=== PATIENT | female | born 1945 | race Caucasian/White ===

== ENCOUNTER 2017-12-27 03:10 | Emergency (ER) | payer MEDICARE, BC ==
[2017-12-27 03:17] VITALS: BP 185/70
[2017-12-27] MEDS ORDERED: Sodium Chloride 0.9% 1,000 ML IV ONE (03:40)
[2017-12-27] MEDS ORDERED: Ondansetron 4 MG/2 ML SDV IV ONE (03:41)
[2017-12-27 03:47] LABS: CHLORIDE,CL 94 mmol/L (101-111); SODIUM,NA 131 mmol/L (135-145)
[2017-12-27] MEDS ORDERED: Famotidine 20 MG/2 ML SDV IVPUSH ONE (03:47)
--- NOTE | 2017-12-27 04:11 | EDM.PDOC ---
ED HPI GENERAL MEDICAL PROBLEM - General Chief Complaint: Genitourinary Problem Stated Complaint: CANT PEE AND THROWING UP [id number] Time Seen by Provider: 12/27/17 04:06 Source of Information: Reports: Patient History Limitations: Reports: No Limitations - History of Present Illness INITIAL COMMENTS - FREE TEXT/NARRATIVE: ED with complaint of nausea vomiting and unable to void.Last void afternoon, feels pressure. Notes lower abdominal cramping starting 730 tonight after eating meatballs prepared by someone else. Hx celiac disease. No fever or chills. Normal BM's, no diarrhea. hx frequent UTI's. - Related Data Allergies Allergy/AdvReac Type Severity Reaction Status Date / Time latex Allergy Hives Verified 12/27/17 03:43 lisinopril Allergy Change Verified 12/27/17 03:43 Mental Status tetanus toxoid, adsorbed Allergy Nausea and Verified 12/27/17 03:43 Vomiting Home Meds: Home Meds Alendronate [Fosamax] 70 mg PO .WEEKLY 07/09/14 [History] Latanoprost [Xalatan 0.005% Ophth Soln] 1 drop EYEBOTH BEDTIME 07/09/14 [History ] Levothyroxine 112 mcg PO DAILY 07/09/14 [History] Nitroglycerin [Nitrostat] 0.4 mg SL ASDIRECTED PRN 07/09/14 [History] Warfarin Sodium [Jantoven] 5 mg PO .VICK.MO.WE.TH.SA 07/12/14 [History] Warfarin [Coumadin] 3 mg PO .TU.Sat09/07/14 [History] Acetaminophen 500 mg PO Q6H PRN 09/06/15 [History] Cetirizine [ZyrTEC] 10 mg PO DAILY PRN 09/06/15 [History] Multivitamin [Multivitamins] 2 tab PO DAILY 09/06/15 [History] Pantoprazole [ProTONIX] 40 mg PO DAILY 09/06/15 [History] Ubidecarenone [Coenzyme Q10] 100 mg PO DAILY 09/06/15 [History] Aspirin 81 mg PO DAILY 07/04/16 [History] Loratadine 10 mg PO DAILY PRN 07/04/16 [History] Losartan [Cozaar] 50 mg PO DAILY #30 tablet 07/05/16 [Rx] Pravastatin [Pravachol] 40 mg PO BEDTIME #30 tablet 07/05/16 [Rx] Metoprolol Succinate [Toprol XL 50mg] 1 tab PO DAILY 12/27/17 [History] Phytonadione [Vitamin K] 1 tab PO DAILY 12/27/17 [History] Propylene Glycol/PEG 400/Pf [Systane 0.3-0.4% Eye Drops] 1 drop EYEBOTH ASDIRECTED PRN 12/27/17 [History] Past Medical History HEENT History: Reports: Impaired Vision Cardiovascular History: Reports: Afib, Angina, Bypass, CAD, High Cholesterol, Hypertension Gastrointestinal History: Reports: Celiac Disease Genitourinary History: Reports: Urinary Incontinence Musculoskeletal History: Reports: Arthritis Neurological History: Reports: TIA Other Neuro History: this admission Endocrine/Metabolic History: Reports: Hypothyroidism Hematologic History: Reports: Anticoagulation Therapy Immunologic History: Reports: Other (See Below) Other Immunologic History: celiac disease - Infectious Disease History Infectious Disease History: Reports: Chicken Pox, Measles, Mumps, Rubella, Shingles - Past Surgical History HEENT Surgical History: Reports: Cataract Surgery Cardiovascular Surgical History: Reports: Coronary Artery Bypass, Other (See Below) GI Surgical History: Reports: Cholecystectomy Female Surgical History: Reports: Hysterectomy Other Female Surgeries/Procedures: repair of genitourinary, bladdersling Social & Family History - Family History Family Medical History: Noncontributory - Tobacco Use Smoking Status *Q: Unknown Ever Smoked Second Hand Smoke Exposure: No - Caffeine Use Caffeine Use: Reports: Coffee - Alcohol Use Days Per Week of Alcohol Use: 0 - Recreational Drug Use Recreational Drug Use: No - Living Situation & Occupation Living situation: Reports: , with Spouse Occupation: Retired ED ROS GENERAL - Review of Systems Review Of Systems: See Below Constitutional: Denies: Fever, Chills HEENT: Reports: No Symptoms Respiratory: Reports: No Symptoms Cardiovascular: Reports: No Symptoms GI/Abdominal: Reports: Abdominal Pain (started with lower abdominal cramping now upper gastric burning), Nausea, Vomiting. Denies: Diarrhea, Hematemesis : Reports: Urinary Retention Musculoskeletal: Reports: No Symptoms Skin: Reports: No Symptoms Neurological: Reports: No Symptoms ED EXAM, GI/ABD - Physical Exam Exam: See Below Exam Limited By: No Limitations General Appearance: Alert, Anxious, Mild Distress Eyes: Bilateral: EOMI Ears: Normal External Exam, Normal TMs Nose: Normal Inspection Throat/Mouth: Normal Inspection Head: Atraumatic, Normocephalic Neck: Normal Inspection Respiratory/Chest: No Respiratory Distress, Lungs Clear, Normal Breath Sounds Cardiovascular: Normal Peripheral Pulses GI/Abdominal Exam: Normal Bowel Sounds, Soft, Tender (epigastric). No: Distended, Guarding Extremities: Normal Inspection Neurological: Alert, Oriented, Normal Cognition Psychiatric: Anxious Skin Exam: Warm, Dry, Intact, Normal Color Course - Vital Signs Last Recorded V/S: Last Vital Signs Temp 97.2 F 12/27/17 03:16 Pulse 82 12/27/17 03:16 Resp 19 12/27/17 03:16 BP 185/70 H 12/27/17 03:16 Pulse Ox 97 12/27/17 03:16 - Orders/Labs/Meds Orders: Active Orders 24 hr Category Date Time Status EKG 12 Lead [EKG Documentation Completion] [RC] URGENT Care 12/27/17 04:18 Active Labs: Laboratory Tests 12/27/17 12/27/17 12/27/17 Range/Units 02:20 02:20 02:20 WBC 11.3 H (5.0-10.0) 10^3/uL RBC 4.72 (4.2-5.4) 10^6/uL Hgb 14.2 (12.0-16.0) g/dL Hct 42.7 (37.0-47.0) % MCV 90.5 (80-100) fL MCH 30.1 (27.0-34.0) pg MCHC 33.3 (33.0-35.0) g/dL Plt Count 283 (150-450) 10^3/uL Neut % (Auto) 84.0 H (42.2-75.2) % Lymph % (Auto) 11.1 L (20.5-50.1) % Tillman % (Auto) 3.9 (2-8) % Eos % (Auto) 0.9 L (1.0-3.0) % Baso % (Auto) 0.1 (0.0-1.0) % PT 20.6 H D (9.0-12.0) SEC INR 2.0 H (0.9-1.2) Sodium 131 L (135-145) mmol/L Potassium 4.2 (3.6-5.0) mmol/L Chloride 94 L (101-111) mmol/L Carbon Dioxide 30.0 (21.0-31.0) mmol/L Anion Gap 11.2 BUN 14 (7-18) mg/dL Creatinine 0.7 (0.6-1.3) mg/dL Est Cr Clr Drug Dosing 58.30 mL/min Estimated GFR (MDRD) > 60 BUN/Creatinine Ratio 20.00 Glucose 157 H (74-105) mg/dL Calcium 9.4 (8.4-10.2) mg/dl Total Bilirubin 0.4 (0.2-1.0) mg/dL AST 27 (10-42) IU/L ALT 22 (10-60) IU/L Alkaline Phosphatase 83 (42-121) IU/L Troponin I (0.00-0.02) ng/ml Total Protein 7.4 (6.7-8.2) g/dl Albumin 4.3 (3.2-5.5) g/dl Globulin 3.1 Albumin/Globulin Ratio 1.39 Amylase (28-100) U/L Lipase (22-51) U/L Urine Color (YELLOW) Urine Appearance (CLEAR) Urine pH (5.0-9.0) Ur Specific [place] (1.005-1.030) Urine Protein (NEGATIVE) Urine Glucose (UA) (NEGATIVE) Urine Ketones (NEGATIVE) Urine Occult Blood (NEGATIVE) Urine Nitrite (NEGATIVE) Urine Bilirubin (NEGATIVE) Urine Urobilinogen (0.2-1.0) mg/dL Ur Leukocyte Esterase (NEGATIVE) Urine RBC /HPF Urine WBC (0-5/HPF) /HPF Ur Epithelial Cells /HPF Urine Bacteria (0-FEW/HPF) /HPF 12/27/17 12/27/17 Range/Units 02:20 03:30 WBC (5.0-10.0) 10^3/uL RBC (4.2-5.4) 10^6/uL Hgb (12.0-16.0) g/dL Hct (37.0-47.0) % MCV (80-100) fL MCH (27.0-34.0) pg MCHC (33.0-35.0) g/dL Plt Count (150-450) 10^3/uL Neut % (Auto) (42.2-75.2) % Lymph % (Auto) (20.5-50.1) % Tillman % (Auto) (2-8) % Eos % (Auto) (1.0-3.0) % Baso % (Auto) (0.0-1.0) % PT (9.0-12.0) SEC INR (0.9-1.2) Sodium (135-145) mmol/L Potassium (3.6-5.0) mmol/L Chloride (101-111) mmol/L Carbon Dioxide (21.0-31.0) mmol/L Anion Gap BUN (7-18) mg/dL Creatinine (0.6-1.3) mg/dL Est Cr Clr Drug Dosing mL/min Estimated GFR (MDRD) BUN/Creatinine Ratio Glucose (74-105) mg/dL Calcium (8.4-10.2) mg/dl Total Bilirubin (0.2-1.0) mg/dL AST (10-42) IU/L ALT (10-60) IU/L Alkaline Phosphatase (42-121) IU/L Troponin I < 0.02 (0.00-0.02) ng/ml Total Protein (6.7-8.2) g/dl Albumin (3.2-5.5) g/dl Globulin Albumin/Globulin Ratio Amylase 89 (28-100) U/L Lipase 24 (22-51) U/L Urine Color Yellow (YELLOW) Urine Appearance Clear (CLEAR) Urine pH 8.5 (5.0-9.0) Ur Specific [place] 1.020 (1.005-1.030) Urine Protein Negative (NEGATIVE) Urine Glucose (UA) Negative (NEGATIVE) Urine Ketones Negative (NEGATIVE) Urine Occult Blood Negative (NEGATIVE) Urine Nitrite Negative (NEGATIVE) Urine Bilirubin Negative (NEGATIVE) Urine Urobilinogen 0.2 (0.2-1.0) mg/dL Ur Leukocyte Esterase Negative (NEGATIVE) Urine RBC 0-5 /HPF Urine WBC 0-5 (0-5/HPF) /HPF Ur Epithelial Cells Rare /HPF Urine Bacteria Occasional (0-FEW/HPF) /HPF Meds: Medications Discontinued Medications Generic Name Dose Route Start Last Admin Trade Name Freq PRN Reason Stop Dose Admin Al Hydroxide/Mg Hydroxide 30 ml 12/27/17 04:37 12/27/17 04:45 Gi Cocktail PO 12/27/17 04:38 30 ml ONETIME ONE Administration Famotidine 20 mg 12/27/17 03:47 12/27/17 03:51 Pepcid IVPUSH 12/27/17 03:48 20 mg ONETIME ONE Administration Sodium Chloride 1,000 mls @ 500 mls/hr 12/27/17 03:40 12/27/17 03:51 Normal Saline IV 12/27/17 05:39 500 mls/hr .BOLUS ONE Administration Metoclopramide HCl 10 mg 12/27/17 04:37 12/27/17 04:44 Reglan IVPUSH 12/27/17 04:38 10 mg ONETIME ONE Administration Ondansetron HCl 4 mg 12/27/17 03:41 12/27/17 03:48 Zofran IV 12/27/17 03:42 4 mg ONETIME ONE Administration Pantoprazole Sodium 40 mg 12/27/17 05:39 12/27/17 05:54 Protonix Iv IVPUSH 12/27/17 05:40 40 mg ONETIME ONE Administration - Re-Assessments/Exams Free Text/Narrative Re-Assessment/Exam: 12/27/17 04:10 small light yellow liquid emesis with few particles undigested food. 12/27/17 07:17 vomiting resolved tolerating ice chips. Departure - Departure Time of Disposition: 07:14 Disposition: Home, Self-Care 01 Condition: Good Clinical Impression: Celiac disease Vomiting Qualifiers: Vomiting type: bilious vomiting Nausea presence: with nausea Qualified Code(s) : R11.14 - Bilious vomiting - Discharge Information Instructions: Dehydration, Adult, [id number] Forms: ED Department Discharge Additional Instructions: bland diet few sips liquid, gradual advance as tolerated omeprazole 20mg daily x 14 days (OTC) Zofran 4mg ODT one every 4 hours as needed for nausea and vomiting follow up if symptoms worsen - My Orders Last 24 Hours: My Active Orders 12/27/17 04:18 EKG 12 Lead [EKG Documentation Completion] [RC] URGENT - Assessment/Plan Last 24 Hours: My Active Orders 12/27/17 04:18 EKG 12 Lead [EKG Documentation Completion] [RC] URGENT
[2017-12-27] MEDS ORDERED: GI Cocktail Oral Solution 30 ML PO ONE (04:37)
[2017-12-27] MEDS ORDERED: Metoclopramide 10 MG/2 ML SDV IVPUSH ONE (04:37)
[2017-12-27] MEDS ORDERED: Pantoprazole 40 MG Vial IVPUSH ONE (05:39)
--- NOTE | 2017-12-28 16:31 | EKG ---
12/27/2017 - FAWN THORPE - FINDINGS: EKG per my reading shows sinus rhythm at the rate of 70s with PVC, left bundle-branch block. [facility] /[id number]
== END 2017-12-27 07:28 | disposition home or self-care (01) ==
LOC: DL.ED 03:10
DX: K90.0 Celiac disease (principal); I10 Essential (primary) hypertension; E78.00 Pure hypercholesterolemia, unspecified; I48.91 Unspecified atrial fibrillation; E03.9 Hypothyroidism, unspecified; Z88.8 Allergy status to other drugs, medicaments and biological substances; Z91.040 Latex allergy status; Z88.7 Allergy status to serum and vaccine; Z79.899 Other long term (current) drug therapy; Z79.82 Long term (current) use of aspirin; Z90.79 Acquired absence of other genital organ(s); Z90.710 Acquired absence of both cervix and uterus
CPT/HCPCS: 36415; 80053; 81001; 82150; 83690; 84484; 85025; 85610; 93005; 96361; 96374; 96375; 99284; A9270; C9113; J2405; J2765; J7030; 93010; S0028

== ENCOUNTER 2018-07-28 13:16 | Emergency (ER) | payer MEDICARE, BC ==
[2018-07-28 13:24] VITALS: BP 178/92
--- NOTE | 2018-07-28 15:08 | EDM.PDOC ---
Scribed by Maggy Fernandez 07/28/18 [id number] for Gregg Mccabe MD ED HPI GENERAL MEDICAL PROBLEM - General Chief Complaint: Wound Recheck Stated Complaint: SKIN ON NOSE PROCEEDURE / BLEEDING Time Seen by Provider: 07/28/18 13:25 Source of Information: Reports: Patient, RN, RN Notes Reviewed History Limitations: Reports: No Limitations - History of Present Illness INITIAL COMMENTS - FREE TEXT/NARRATIVE: Patient presents to ER with complaint that she had nose surgery for squamous cell insitu performed at [facility] on , (July 242017). Today after she make several trips up and down the stairs doing laundry she could not stop it. She states she did not bump it. Onset: Today Duration: Getting Worse Location: Reports: Other (nose) Severity: Mild Improves with: Reports: None Worsens with: Reports: None Associated Symptoms: Reports: No Other Symptoms - Related Data Allergies Allergy/AdvReac Type Severity Reaction Status Date / Time latex Allergy Hives Verified 07/28/18 13:24 lisinopril Allergy Change Verified 07/28/18 13:24 Mental Status tetanus toxoid, adsorbed Allergy Nausea and Verified 07/28/18 13:24 Vomiting Home Meds: Home Meds Alendronate [Fosamax] 70 mg PO .WEEKLY 07/09/14 [History] Latanoprost [Xalatan 0.005% Ophth Soln] 1 drop EYEBOTH BEDTIME 07/09/14 [History ] Levothyroxine 112 mcg PO DAILY 07/09/14 [History] Nitroglycerin [Nitrostat] 0.4 mg SL ASDIRECTED PRN 07/09/14 [History] Warfarin Sodium [Jantoven] 5 mg PO .VICK.07/12/14 [History] Warfarin [Coumadin] 3 mg PO ..Sat09/07/14 [History] Acetaminophen 500 mg PO Q6H PRN 09/06/15 [History] Cetirizine [ZyrTEC] 10 mg PO DAILY PRN 09/06/15 [History] Multivitamin [Multivitamins] 2 tab PO DAILY 09/06/15 [History] Pantoprazole [ProTONIX] 40 mg PO DAILY 09/06/15 [History] Ubidecarenone [Coenzyme Q10] 100 mg PO DAILY 09/06/15 [History] Aspirin 81 mg PO DAILY 07/04/16 [History] Loratadine 10 mg PO DAILY PRN 07/04/16 [History] Losartan [Cozaar] 50 mg PO DAILY #30 tablet 07/05/16 [Rx] Pravastatin [Pravachol] 40 mg PO BEDTIME #30 tablet 07/05/16 [Rx] Metoprolol Succinate [Toprol XL 50mg] 1 tab PO DAILY 12/27/17 [History] Phytonadione [Vitamin K] 1 tab PO DAILY 12/27/17 [History] Propylene Glycol/PEG 400/Pf [Systane 0.3-0.4% Eye Drops] 1 drop EYEBOTH ASDIRECTED PRN 12/27/17 [History] Past Medical History HEENT History: Reports: Impaired Vision Cardiovascular History: Reports: Afib, Angina, Bypass, CAD, High Cholesterol, Hypertension Gastrointestinal History: Reports: Celiac Disease Genitourinary History: Reports: Urinary Incontinence Musculoskeletal History: Reports: Arthritis Neurological History: Reports: TIA Other Neuro History: this admission Endocrine/Metabolic History: Reports: Hypothyroidism Hematologic History: Reports: Anticoagulation Therapy Immunologic History: Reports: Other (See Below) Other Immunologic History: celiac disease - Infectious Disease History Infectious Disease History: Reports: Chicken Pox, Measles, Mumps, Rubella, Shingles - Past Surgical History HEENT Surgical History: Reports: Cataract Surgery Cardiovascular Surgical History: Reports: Coronary Artery Bypass, Other (See Below) GI Surgical History: Reports: Cholecystectomy Female Surgical History: Reports: Hysterectomy Other Female Surgeries/Procedures: repair of genitourinary, bladdersling Social & Family History - Family History Family Medical History: Noncontributory - Caffeine Use Caffeine Use: Reports: Coffee - Living Situation & Occupation Living situation: Reports: , with Spouse Occupation: Retired ED ROS GENERAL - Review of Systems Review Of Systems: ROS reveals no pertinent complaints other than HPI. ED EXAM, SKIN/RASH Exam: See Below Exam Limited By: No Limitations Eye Exam: Bilateral Eye: Normal Inspection Ears: Normal External Exam Nose: Normal Mucosa, Other (surgical site on tip of nose with evidence of recent bleeding, currently slow oose of blood from the peripheral edges. Direct pressure applied by RN followed by ice packing and then resolved. No evidence of wound infection. ) Head: Atraumatic, Normocephalic Neck: Normal Inspection Respiratory/Chest: No Respiratory Distress Cardiovascular: Regular Rate, Rhythm Neurological: Alert, Oriented, No Motor/Sensory Deficits Course - Vital Signs Last Recorded V/S: Last Vital Signs Temp 36.0 C 07/28/18 13:20 Pulse 101 H 07/28/18 13:20 Resp 18 07/28/18 13:20 BP 178/92 H 07/28/18 13:20 Pulse Ox 97 07/28/18 13:20 Departure - Departure Time of Disposition: 15:03 Disposition: Home, Self-Care 01 Condition: Good Clinical Impression: Postoperative bleeding from incision, History of Mohs surgery for squamous cell carcinoma in situ of skin - Discharge Information Instructions: Mohs Surgery, Care After Forms: ED Department Discharge Additional Instructions: Light activity only for the next 3 days. Avoid frequent bending over, straining , or any physical exertion. Follow the discharge instructions given to you by your surgeon. If bleeding occurs, apply firm pressure for 15 to 30 mins. and apply an ice pack to the nose for 10 minutes after bleeding stops. Call your surgeon tomorrow to report the bleeding. Return to ER if worse at any time. I have read and agree with the documentation that has been completed regarding this visit. By signing this record, I attest that the documentation was completed in my physical presence and is an accurate record of the encounter.
== END 2018-07-28 15:19 | disposition home or self-care (01) ==
LOC: DL.ED 13:16
DX: L76.22 Postprocedural hemorrhage of skin and subcutaneous tissue following other procedure (principal); D04.39 Carcinoma in situ of skin of other parts of face; Z91.040 Latex allergy status; Z88.7 Allergy status to serum and vaccine; Z88.8 Allergy status to other drugs, medicaments and biological substances; Z79.01 Long term (current) use of anticoagulants; Z79.82 Long term (current) use of aspirin
CPT/HCPCS: 99282; 99283

== ENCOUNTER → 2019-05-04 | Outpatient (CLI) | payer MEDICARE, BC | LOC: DL.US 08:20 | PROVIDERS: ATTEND Nurse Practitioner Acute Care | DX: I25.10 Atherosclerotic heart disease of native coronary artery without angina pectoris (principal); R06.09 Other forms of dyspnea; I08.2 Rheumatic disorders of both aortic and tricuspid valves; Z95.1 Presence of aortocoronary bypass graft | CPT/HCPCS: 93306 ==

== ENCOUNTER 2019-09-06 12:41 | Emergency (ER) | payer MEDICARE, BC ==
[2019-09-06] MEDS ORDERED: Sodium Chloride 0.9% 10 ML Syringe FLUSH PRN (13:32)
[2019-09-06 14:07] LABS: ANION GAP 14.9; CHLORIDE,CL 90 mmol/L (101-111); SODIUM,NA 127 mmol/L (135-145)
[2019-09-06 14:41] VITALS: PULSE 78
[2019-09-06] MEDS ORDERED: Sodium Chloride 1 GM Tab PO ONE (15:49)
[2019-09-06 16:24] VITALS: BP 145/73
--- NOTE | 2019-09-07 12:21 | EDM.PDOC ---
Scribed by Maggy Fernandez 09/06/19 1546 for Suzanne Gomes NP ED HPI GENERAL MEDICAL PROBLEM - General Chief Complaint: Chest Pain Stated Complaint: HBP Time Seen by Provider: 09/06/19 13:32 Source of Information: Reports: Patient, RN, RN Notes Reviewed History Limitations: Reports: No Limitations - History of Present Illness INITIAL COMMENTS - FREE TEXT/NARRATIVE: Patient presents to ER with complaint of sharp pain to middle of chest 12:00 today and took Tums. Blood pressure is elevated at that time as well. Nitro taken at 1215--pain still there at 1220. Denies pain at this time. Admits to history of 3 stents, last one 3 weeks ago. She has an appointment on September 22 with cardiology. No radiation of pain. She has had a cough. No shortness of breath. Onset: Today Duration: Getting Worse Location: Reports: Chest Quality: Reports: Ache Severity: Severe Improves with: Reports: None Worsens with: Reports: None Associated Symptoms: Reports: No Other Symptoms - Related Data Allergies Allergy/AdvReac Type Severity Reaction Status Date / Time latex Allergy Hives Verified 09/06/19 13:49 lisinopril Allergy Change Verified 09/06/19 13:49 Mental Status tetanus toxoid, adsorbed AdvReac Nausea and Verified 09/06/19 13:49 Vomiting Home Meds: Home Meds Latanoprost [Xalatan 0.005% Ophth Soln] 1 drop EYEBOTH BEDTIME 07/09/14 [History ] Nitroglycerin [Nitrostat] 0.4 mg SL ASDIRECTED PRN 07/09/14 [History] Warfarin Sodium [Jantoven] 5 mg PO ASDIRECTED 07/12/14 [History] Aspirin 81 mg PO DAILY 07/04/16 [History] Pravastatin [Pravachol] 40 mg PO BEDTIME #30 tablet 07/05/16 [Rx] Phytonadione [Vitamin K] 100 mcg PO DAILY 12/27/17 [History] Propylene Glycol/PEG 400/Pf [Systane 0.3-0.4% Eye Drops] 1 drop EYEBOTH ASDIRECTED PRN 12/27/17 [History] Clopidogrel [Plavix] 75 mg PO DAILY 06/23/19 [History] Furosemide 40 mg PO DAILY PRN 06/23/19 [History] Isosorbide Mononitrate [Imdur] 60 mg PO DAILY 06/23/19 [History] Levothyroxine [Synthroid] 100 mcg PO DAILY 06/23/19 [History] Losartan [Cozaar] 150 mg PO DAILY 06/23/19 [History] Magnesium Oxide 250 mg PO BID 06/23/19 [History] rOPINIRole [Requip] 0.5 mg PO BEDTIME 06/23/19 [History] Calcium Carb/D3/Magnesium/Zinc [Cody Mag Zinc + D Tablet] 1 tab PO TID 07/21/19 [ History] Metoprolol Succinate [Toprol Xl] 100 mg PO BEDTIME 07/31/19 [History] Spironolactone [Aldactone] 12.5 mg PO DAILY 07/31/19 [History] Acetaminophen [Acetaminophen 8 Hour] 500 mg PO Q8HR 08/20/19 [History] Triamcinolone Acetonide [Triamcinolone Acetonide 0.1% Crm] 1 applic TOP ASDIRECTED 08/20/19 [History] Triamcinolone Acetonide [Triamcinolone Acetonide 0.1% Oint] 1 applic TOP ASDIRECTED 08/20/19 [History] Lutein/Minerals/Vit A,C & E [I-Toni] 1 each PO DAILY 09/06/19 [History] Past Medical History HEENT History: Reports: Impaired Vision Cardiovascular History: Reports: Afib, Angina, Bypass, CAD, High Cholesterol, Hypertension, PTCA, Stents Respiratory History: Reports: None Gastrointestinal History: Reports: Celiac Disease Genitourinary History: Reports: Urinary Incontinence Musculoskeletal History: Reports: Arthritis Neurological History: Reports: TIA Other Neuro History: this admission Endocrine/Metabolic History: Reports: Hypothyroidism Hematologic History: Reports: Anticoagulation Therapy Immunologic History: Reports: Other (See Below) Other Immunologic History: celiac disease Oncologic (Cancer) History: Reports: Squamous Cell Carcinoma - Infectious Disease History Infectious Disease History: Reports: Chicken Pox, Measles, Mumps, Rubella, Shingles - Past Surgical History HEENT Surgical History: Reports: Cataract Surgery Cardiovascular Surgical History: Reports: Coronary Artery Bypass, Other (See Below) GI Surgical History: Reports: Cholecystectomy Female Surgical History: Reports: Hysterectomy Other Female Surgeries/Procedures: repair of genitourinary, [place] Social & Family History - Family History Family Medical History: Noncontributory - Caffeine Use Caffeine Use: Reports: Coffee - Living Situation & Occupation Living situation: Reports: , with Spouse Occupation: Retired ED ROS GENERAL - Review of Systems Review Of Systems: ROS reveals no pertinent complaints other than HPI. ED EXAM, GENERAL - Physical Exam Exam: See Below Exam Limited By: No Limitations General Appearance: Alert, WD/WN, No Apparent Distress Eye Exam: Bilateral Eye: EOMI, Normal Inspection, PERRL Ears: Normal External Exam, Normal Canal, Hearing Grossly Normal, Normal TMs Nose: Normal Inspection, Normal Mucosa, No Blood Throat/Mouth: Normal Inspection, Normal Lips, Normal Teeth, Normal Gums, Normal Oropharynx, Normal Voice, No Airway Compromise Head: Atraumatic, Normocephalic Neck: Normal Inspection, Supple, Non-Tender, Full Range of Motion Respiratory/Chest: No Respiratory Distress, Lungs Clear, Normal Breath Sounds, No Accessory Muscle Use, Chest Non-Tender Cardiovascular: Irregularly Irregular GI/Abdominal: Normal Bowel Sounds, Soft, Non-Tender, No Organomegaly, No Distention, No Abnormal Bruit, No Mass (Female) Exam: Deferred Rectal (Female) Exam: Deferred Back Exam: Normal Inspection, Full Range of Motion, NT Extremities: Normal Inspection, Normal Range of Motion, Non-Tender, Normal Capillary Refill, No Pedal Edema Neurological: Alert, Oriented, CN II-XII Intact, Normal Cognition, Normal Gait, Normal Reflexes, No Motor/Sensory Deficits Psychiatric: Flat Affect Skin Exam: Warm, Dry, Intact, Normal Color, No Rash Lymphatic: No Adenopathy EKG INTERPRETATION EKG Date: 09/06/19 Time: 13:20 Rhythm: A-Fib (V-rate 71-102) Rate (Beats/Min): 85 EKG Interpretation Comments: Nonspecific intraventricular conduction delay. Borderline low voltage in frontal leads. LVH with secondary repolarization abnormality. Consider anterior infarct. Course - Vital Signs Last Recorded V/S: Last Vital Signs Temp 97.2 F 09/06/19 16:23 Pulse 78 09/06/19 16:23 Resp 18 09/06/19 16:23 BP 145/73 H 09/06/19 16:23 Pulse Ox 98 09/06/19 16:23 - Orders/Labs/Meds Orders: Active Orders 24 hr Category Date Time Status EKG 12 Lead [EKG Documentation Completion] [RC] STAT Care 09/06/19 13:32 Active EKG Documentation Completion [RC] STAT Care 09/06/19 17:40 Active Peripheral IV Care [RC] . DIRECTED Care 09/06/19 13:33 Active CULTURE URINE [RM] Stat Lab 09/06/19 15:05 Received Sodium Chloride 0.9% [Saline Flush] Med 09/06/19 13:32 Active 10 ml FLUSH ASDIRECTED PRN Peripheral IV Insertion Adult [OM.PC] Routine Oth 09/06/19 13:32 Ordered Medication Orders Sodium Chloride (Saline Flush) 10 ml FLUSH ASDIRECTED PRN PRN Reason: Keep Vein Open Last Admin: 09/06/19 13:50 Dose: 10 ml Labs: Laboratory Tests 09/06/19 09/06/19 09/06/19 Range/Units 13:41 13:41 13:41 WBC 6.4 (5.0-10.0) 10^3/uL RBC 4.56 (4.2-5.4) 10^6/uL Hgb 14.3 (12.0-16.0) g/dL Hct 41.8 (37.0-47.0) % MCV 91.7 (80-100) fL MCH 31.4 (27.0-34.0) pg MCHC 34.2 (33.0-35.0) g/dL Plt Count 241 (150-450) 10^3/uL Neut % (Auto) 48.8 (42.2-75.2) % Lymph % (Auto) 32.1 (20.5-50.1) % [place] % (Auto) 12.0 H (2-8) % Eos % (Auto) 6.9 H (1.0-3.0) % Baso % (Auto) 0.2 (0.0-1.0) % PT 25.9 H (9.0-12.0) SEC INR 2.7 H (0.9-1.2) Sodium 127 L (135-145) mmol/L Potassium 4.9 (3.6-5.0) mmol/L Chloride 90 L (101-111) mmol/L Carbon Dioxide 27.0 (21.0-31.0) mmol/L Anion Gap 14.9 BUN 15 (7-18) mg/dL Creatinine 0.7 (0.6-1.3) mg/dL Est Cr Clr Drug Dosing 59.21 mL/min Estimated GFR (MDRD) > 60 BUN/Creatinine Ratio 21.42 Glucose 112 H (74-105) mg/dL Calcium 9.4 (8.4-10.2) mg/dl Total Bilirubin 0.9 (0.2-1.0) mg/dL AST 28 (10-42) IU/L ALT 33 (10-60) IU/L Alkaline Phosphatase 92 (42-121) IU/L Troponin I < 0.02 (0.00-0.02) ng/ml B-Natriuretic Peptide 432 H (0-100) pg/ml Total Protein 6.8 (6.7-8.2) g/dl Albumin 4.0 (3.2-5.5) g/dl Globulin 2.8 Albumin/Globulin Ratio 1.43 Urine Color (YELLOW) Urine Appearance (CLEAR) Urine pH (5.0-9.0) Ur Specific [place] (1.005-1.030) Urine Protein (NEGATIVE) Urine Glucose (UA) (NEGATIVE) Urine Ketones (NEGATIVE) Urine Occult Blood (NEGATIVE) Urine Nitrite (NEGATIVE) Urine Bilirubin (NEGATIVE) Urine Urobilinogen (0.2-1.0) mg/dL Ur Leukocyte Esterase (NEGATIVE) Urine RBC /HPF Urine WBC (0-5/HPF) /HPF Ur Epithelial Cells (NOT SEEN) /HPF Amorphous Sediment (NOT SEEN) /HPF Urine Bacteria (0-FEW/HPF) /HPF Urine Mucus (NOT SEEN) /LPF 09/06/19 09/06/19 Range/Units 15:05 17:40 WBC (5.0-10.0) 10^3/uL RBC (4.2-5.4) 10^6/uL Hgb (12.0-16.0) g/dL Hct (37.0-47.0) % MCV (80-100) fL MCH (27.0-34.0) pg MCHC (33.0-35.0) g/dL Plt Count (150-450) 10^3/uL Neut % (Auto) (42.2-75.2) % Lymph % (Auto) (20.5-50.1) % [place] % (Auto) (2-8) % Eos % (Auto) (1.0-3.0) % Baso % (Auto) (0.0-1.0) % PT (9.0-12.0) SEC INR (0.9-1.2) Sodium (135-145) mmol/L Potassium (3.6-5.0) mmol/L Chloride (101-111) mmol/L Carbon Dioxide (21.0-31.0) mmol/L Anion Gap BUN (7-18) mg/dL Creatinine (0.6-1.3) mg/dL Est Cr Clr Drug Dosing mL/min Estimated GFR (MDRD) BUN/Creatinine Ratio Glucose (74-105) mg/dL Calcium (8.4-10.2) mg/dl Total Bilirubin (0.2-1.0) mg/dL AST (10-42) IU/L ALT (10-60) IU/L Alkaline Phosphatase (42-121) IU/L Troponin I < 0.02 (0.00-0.02) ng/ml B-Natriuretic Peptide (0-100) pg/ml Total Protein (6.7-8.2) g/dl Albumin (3.2-5.5) g/dl Globulin Albumin/Globulin Ratio Urine Color Yellow (YELLOW) Urine Appearance Clear (CLEAR) Urine pH 7.0 (5.0-9.0) Ur Specific [place] 1.015 (1.005-1.030) Urine Protein Negative (NEGATIVE) Urine Glucose (UA) Negative (NEGATIVE) Urine Ketones Negative (NEGATIVE) Urine Occult Blood Trace-intact H (NEGATIVE) Urine Nitrite Negative (NEGATIVE) Urine Bilirubin Negative (NEGATIVE) Urine Urobilinogen 0.2 (0.2-1.0) mg/dL Ur Leukocyte Esterase Small H (NEGATIVE) Urine RBC 0-5 /HPF Urine WBC 10-20 H (0-5/HPF) /HPF Ur Epithelial Cells Rare (NOT SEEN) /HPF Amorphous Sediment Occasional (NOT SEEN) /HPF Urine Bacteria Occasional (0-FEW/HPF) /HPF Urine Mucus Not seen (NOT SEEN) /LPF Meds: Medications Generic Name Dose Route Start Last Admin Trade Name Freq PRN Reason Stop Dose Admin Sodium Chloride 10 ml 09/06/19 13:32 09/06/19 13:50 Saline Flush FLUSH 10 ml ASDIRECTED PRN Administration Keep Vein Open Discontinued Medications Generic Name Dose Route Start Last Admin Trade Name Freq PRN Reason Stop Dose Admin Sodium Chloride 1 gm 09/06/19 15:49 09/06/19 16:00 Sodium Chloride PO 09/06/19 15:50 1 gm ONETIME ONE Administration - Radiology Interpretation Free Text/Narrative:: Chest xray: FINDINGS: Lungs: Atelectatic changes within both lung bases without focal pneumonia. Pleural space: Unremarkable. No pleural effusion. No pneumothorax. Heart/Mediastinum: The heart demonstrates moderate diffuse enlargement. Bones/joints: There are sternal wires consistent with previous sternotomy incision. IMPRESSION: 1. The heart demonstrates moderate diffuse enlargement. 2. Atelectatic changes within both lung bases without focal pneumonia. Thank you for allowing us to participate in the care of your patient. Dictated and Authenticated by: Lucas Hernandez DO 09/06/2019 3:29 PM Central Time ([place] & [place]) See rad report Departure - Departure Time of Disposition: 18:16 Disposition: Home, Self-Care 01 Condition: Fair Clinical Impression: Acute coronary syndrome Instructions: Nonspecific Chest Pain, [id number], Angina Pectoris, Easy-to- Read Forms: ED Department Discharge Additional Instructions: Follow up with your primary care facility Return to the ER with any further problems - My Orders Last 24 Hours: My Active Orders 09/06/19 13:32 EKG 12 Lead [EKG Documentation Completion] [RC] STAT Sodium Chloride 0.9% [Saline Flush] 10 ml FLUSH ASDIRECTED PRN Peripheral IV Insertion Adult [OM.PC] Routine 09/06/19 13:33 Peripheral IV Care [RC] . DIRECTED 09/06/19 15:05 CULTURE URINE [RM] Stat 09/06/19 17:40 EKG Documentation Completion [RC] STAT - Assessment/Plan Last 24 Hours: My Active Orders 09/06/19 13:32 EKG 12 Lead [EKG Documentation Completion] [RC] STAT Sodium Chloride 0.9% [Saline Flush] 10 ml FLUSH ASDIRECTED PRN Peripheral IV Insertion Adult [OM.PC] Routine 09/06/19 13:33 Peripheral IV Care [RC] . DIRECTED 09/06/19 15:05 CULTURE URINE [RM] Stat 09/06/19 17:40 EKG Documentation Completion [RC] STAT I have read and agree with the documentation that has been completed regarding this visit. By signing this record, I attest that the documentation was completed in my physical presence and is an accurate record of the encounter.
== END 2019-09-06 19:01 | disposition home or self-care (01) ==
LOC: DL.ED 12:41
DX: I24.9 Acute ischemic heart disease, unspecified (principal); I25.10 Atherosclerotic heart disease of native coronary artery without angina pectoris; I10 Essential (primary) hypertension; E03.9 Hypothyroidism, unspecified; E78.00 Pure hypercholesterolemia, unspecified; Z79.01 Long term (current) use of anticoagulants; Z79.02 Long term (current) use of antithrombotics/antiplatelets; Z79.82 Long term (current) use of aspirin; Z79.890 Hormone replacement therapy; Z79.899 Other long term (current) drug therapy; Z86.73 Personal history of transient ischemic attack (TIA), and cerebral infarction without residual deficits; Z88.7 Allergy status to serum and vaccine; Z95.1 Presence of aortocoronary bypass graft; Z88.8 Allergy status to other drugs, medicaments and biological substances; Z91.040 Latex allergy status
CPT/HCPCS: 36415; 71045; 80053; 81001; 83880; 84484; 85025; 85610; 87086; 87088; 87186; 93005; 99284-25; A9270-GY

== ENCOUNTER 2021-10-22 13:40 | Observation (INO) | payer MEDICARE, BC ==
--- NOTE | 2021-10-22 14:56 | EDM.PDOC ---
ED HPI GENERAL MEDICAL PROBLEM - General Stated Complaint: CONVULSION / FEET HANDS NOT COORDINATED SINCE Time Seen by Provider: 10/22/21 14:20 Source of Information: Reports: Patient, RN, RN Notes Reviewed History Limitations: Reports: No Limitations - History of Present Illness INITIAL COMMENTS - FREE TEXT/NARRATIVE: Louise is a 76 y/o female with a history of CHF and Afib anticoagulated on Coumadin who presents to the ED via personal vehicle with complaints of a possible syncopal event. The patient reports this morning she was eating breakfast and had experienced a sensation of a stuck food bolus in her esophagus. She notes after attempting to swallow several drinks of water she began to experience "..convulsions." She is uncertain if she lost consciousness during the event. She denies fever, shaking chills, dizziness, cough, chest pain/pressure, palpitations, shortness of breath, dyspepsia, nausea, vomiting, or abdominal pain. She notes she was recently treated for a UTI that was refr actory to Macrobid, but experienced appropriate results from Augmentin; she finished her Augmentin five days ago. She denies tobacco, alcohol, or recreational drug use. - Related Data Allergies Allergy/AdvReac Type Severity Reaction Status Date / Time latex Allergy Hives Verified 10/22/21 14:19 lisinopril Allergy Change Verified 10/22/21 14:19 Mental Status tetanus toxoid, adsorbed AdvReac Nausea and Verified 10/22/21 14:19 Vomiting Home Meds: Home Meds Latanoprost [Xalatan 0.005% Ophth Soln] 1 drop EYEBOTH BEDTIME 07/09/14 [History] Nitroglycerin [Nitrostat] 0.4 mg SL ASDIRECTED PRN 07/09/14 [History] Warfarin Sodium [Jantoven] 5 mg PO ASDIRECTED 07/12/14 [History] Pravastatin [Pravachol] 40 mg PO BEDTIME #30 tablet 07/05/16 [Rx] Phytonadione [Vitamin K] 100 mcg PO DAILY 12/27/17 [History] Propylene Glycol/PEG 400/Pf [Systane 0.3-0.4% Eye Drops] 1 drop EYEBOTH ASDIRECTED PRN 12/27/17 [History] Clopidogrel [Plavix] 75 mg PO DAILY 06/23/19 [History] Furosemide 40 mg PO DAILY PRN 06/23/19 [History] Isosorbide Mononitrate [Imdur] 60 mg PO DAILY 06/23/19 [History] Levothyroxine [Synthroid] 112 mcg PO DAILY 06/23/19 [History] Losartan [Cozaar] 150 mg PO DAILY 06/23/19 [History] Magnesium Oxide [Magnesium] 250 mg PO BID 06/23/19 [History] rOPINIRole [Requip] 1 mg PO BEDTIME 06/23/19 [History] Calcium Carb/D3/Magnesium/Zinc [Cody Mag Zinc + D Tablet] 1 tab PO TID 07/21/19 [History] Metoprolol Succinate [Toprol Xl] 100 mg PO BEDTIME 07/31/19 [History] Spironolactone [Aldactone] 12.5 mg PO DAILY 07/31/19 [History] Acetaminophen [Acetaminophen 8 Hour] 500 mg PO Q8HR 08/20/19 [History] Triamcinolone Acetonide [Triamcinolone Acetonide 0.1% Crm] 1 applic TOP ASDIRECTED 08/20/19 [History] Lutein/Minerals/Vit A,C & E [I-Toni] 1 each PO DAILY 09/06/19 [History] Past Medical History HEENT History: Reports: Impaired Vision Cardiovascular History: Reports: Afib, Angina, Bypass, CAD, High Cholesterol, Hypertension, PTCA, Stents Respiratory History: Reports: None Gastrointestinal History: Reports: Celiac Disease Genitourinary History: Reports: Urinary Incontinence DOG DAYCARE PROVIDER History: Reports: Musculoskeletal History: Reports: Arthritis Neurological History: Reports: TIA Other Neuro History: this admission Psychiatric History: Reports: None Endocrine/Metabolic History: Reports: Hypothyroidism Hematologic History: Reports: Anticoagulation Therapy Immunologic History: Reports: Other (See Below) Other Immunologic History: celiac disease Oncologic (Cancer) History: Reports: Squamous Cell Carcinoma Dermatologic History: Reports: Other (See Below) Other Dermatologic History: Skin cancer - Infectious Disease History Infectious Disease History: Reports: Chicken Pox, Measles, Mumps, Rubella, Shingles - Past Surgical History HEENT Surgical History: Reports: Cataract Surgery Cardiovascular Surgical History: Reports: Coronary Artery Bypass, Other (See Below) Other Cardiovascular Surgeries/Procedures: cardioversion GI Surgical History: Reports: Cholecystectomy Female Surgical History: Reports: Hysterectomy Other Female Surgeries/Procedures: repair of genitourinary, bladdersling Social & Family History - Family History Family Medical History: No Pertinent Family History - Tobacco Use Tobacco Use Status *Q: Never Tobacco User Second Hand Smoke Exposure: No - Caffeine Use Caffeine Use: Reports: None Caffeine Use Comment: 3 cups per day. - Recreational Drug Use Recreational Drug Use: No - Living Situation & Occupation Living situation: Reports: , with Spouse Occupation: Retired ED ROS GENERAL - Review of Systems Review Of Systems: Comprehensive ROS is negative, except as noted in HPI. - Physical Exam Exam: See Below Exam Limited By: No Limitations General Appearance: Alert, No Apparent Distress Eye Exam: Bilateral Eye: EOMI, Normal Inspection, PERRL (3mm) Ears: Normal External Exam, Normal Canal, Hearing Grossly Normal, Normal TMs Nose: Normal Inspection, Normal Mucosa, No Blood Throat/Mouth: Normal Inspection, Normal Oropharynx, Normal Voice, No Airway Compromise Head Exam: Atraumatic, Normocephalic Neck: Normal Inspection, Supple, Non-Tender, Full Range of Motion. No: Lymphadenopathy (L), Lymphadenopathy (R) Respiratory/Chest: No Respiratory Distress, No Accessory Muscle Use, Chest Non- Tender, Decreased Breath Sounds. No: Crackles, Rales, Rhonchi, Wheezing, Stridor Cardiovascular: Regular Rate, Rhythm, No Gallop, No JVD, No Murmur, No Rub, Irregularly Irregular. No: No Edema GI/Abdominal: Normal Bowel Sounds, Soft, Non-Tender, No Distention, No Abnormal Bruit, No Mass, Pelvis Stable (Female) Exam: Deferred Rectal (Female) Exam: Deferred Neuro Exam (Abbreviated): Alert, Oriented, CN II-XII Intact, Normal Cognition, Normal Gait, No Motor/Sensory Deficits Back Exam: Normal Inspection, Full Range of Motion Extremities: Normal Range of Motion, Non-Tender, Normal Capillary Refill, Pedal Edema (Trace pitting, bilaterally) Psychiatric: Normal Affect, Normal Mood Skin Exam: Warm, Dry, Intact, Normal Color, No Rash. No: Cyanosis, Ecchymosis, Erythema, Jaundice, Mottled, Pallor, Petechiae #1 Interpretation EKG Date: 10/22/21 Time: 14:11 Rhythm: A-Fib Rate (Beats/Min): 65 [place]on: Normal P-Wave: Absent QRS: Normal ST-T: Normal QT: Normal Comparison: Change From Previous EKG (09/06/19) EKG Interpretation Comments: AFib; No evidence of acute myocardial ischemia #2 Interpretation EKG Date: 10/22/21 Time: 16:39 Rhythm: A-Fib Rate (Beats/Min): 65 Mazon: Normal P-Wave: Absent QRS: Normal ST-T: Normal QT: Normal Comparison: No Change (AFib; No evidence of acute myocardial ischemia) Course - Vital Signs Last Recorded V/S: Last Vital Signs Temp 97.0 F 10/22/21 13:50 Pulse 65 10/22/21 13:50 Resp 18 10/22/21 13:50 BP 170/72 H 10/22/21 13:50 Pulse Ox 96 10/22/21 13:50 Orthostatic Blood Pressure [ 189/87 Standing] Orthostatic Blood Pressure [ 183/82 Sitting] Orthostatic Blood Pressure [ 170/72 Supine] - Orders/Labs/Meds Labs: Laboratory Tests 10/22/21 10/22/21 10/22/21 Range/Units 13:45 13:50 14:24 WBC (5.0-10.0) 10^3/uL RBC (4.2-5.4) 10^6/uL Hgb (12.0-16.0) g/dL Hct (37.0-47.0) % MCV (80-100) fL MCH (27.0-34.0) pg MCHC (33.0-35.0) g/dL Plt Count (150-450) 10^3/uL Neut % (Auto) (42.2-75.2) % Lymph % (Auto) (20.5-50.1) % [place] % (Auto) (2-8) % Eos % (Auto) (1.0-3.0) % Baso % (Auto) (0.0-1.0) % PT (9.0-12.0) SEC INR (0.9-1.2) APTT (22.0-34.0) SEC Sodium (136-145) mmol/L Potassium (3.5-5.1) mmol/L Chloride (98-107) mmol/L Carbon Dioxide (21-32) mmol/L Anion Gap (7-13) mEq/L BUN (7-18) mg/dL Creatinine (0.55-1.02) mg/dL Est Cr Clr Drug Dosing mL/min Estimated GFR (MDRD) BUN/Creatinine Ratio (No establ ref range) Glucose (70-99) mg/dL Lactic Acid (0.4-2.0) mmol/L Calcium (8.5-10.1) mg/dL Magnesium (1.8-2.4) mg/dL Total Bilirubin (0.2-1.0) mg/dL AST (15-37) U/L ALT (14-59) U/L Alkaline Phosphatase (46-116) U/L Ammonia (11-32) umol/L Troponin I High Sens (<=51) pg/mL C-Reactive Protein (0.0-0.9) mg/dL B-Natriuretic Peptide (0-100) pg/ml Total Protein (6.4-8.2) g/dL Albumin (3.4-5.0) g/dL Globulin Albumin/Globulin Ratio Urine Color Yellow (YELLOW) Urine Appearance Clear (CLEAR) Urine pH 6.5 (5.0-9.0) Ur Specific [place] 1.020 (1.005-1.030) Urine Protein Negative (NEGATIVE) Urine Glucose (UA) Negative (NEGATIVE) Urine Ketones Negative (NEGATIVE) Urine Occult Blood Negative (NEGATIVE) Urine Nitrite Negative (NEGATIVE) Urine Bilirubin Negative (NEGATIVE) Urine Urobilinogen 0.2 (0.2-1.0) mg/dL Ur Leukocyte Esterase Negative (NEGATIVE) Urine Opiates Screen Negative (NEGATIVE) Ur Oxycodone Screen Negative (NEGATIVE) Urine Methadone Screen Negative (NEGATIVE) Ur Barbiturates Screen Negative (NEGATIVE) U Tricyclic Antidepress Negative (NEGATIVE) Ur Phencyclidine Scrn Negative (NEGATIVE) Ur Amphetamine Screen Negative (NEGATIVE) U Methamphetamines Scrn Negative (NEGATIVE) Urine MDMA Screen Negative (NEGATIVE) U Benzodiazepines Scrn Negative (NEGATIVE) Urine Cocaine Screen Negative (NEGATIVE) U Marijuana (THC) Screen Negative (NEGATIVE) Ethyl Alcohol (0) mg/dL SARS-CoV-2 RNA (CORINNE) Negative (NEGATIVE) 10/22/21 10/22/21 10/22/21 Range/Units 14:32 14:32 14:32 WBC 5.0 (5.0-10.0) 10^3/uL RBC 4.41 (4.2-5.4) 10^6/uL Hgb 14.1 (12.0-16.0) g/dL Hct 41.5 (37.0-47.0) % MCV 94.1 (80-100) fL MCH 32.0 (27.0-34.0) pg MCHC 34.0 (33.0-35.0) g/dL Plt Count 248 (150-450) 10^3/uL Neut % (Auto) 51.6 (42.2-75.2) % Lymph % (Auto) 30.2 (20.5-50.1) % [place] % (Auto) 11.5 H (2-8) % Eos % (Auto) 6.5 H (1.0-3.0) % Baso % (Auto) 0.2 (0.0-1.0) % PT 26.8 H (9.0-12.0) SEC INR 2.7 H (0.9-1.2) APTT 40.9 H (22.0-34.0) SEC Sodium 132 L (136-145) mmol/L Potassium 5.0 (3.5-5.1) mmol/L Chloride 95 L (98-107) mmol/L Carbon Dioxide 31 (21-32) mmol/L Anion Gap 11.0 (7-13) mEq/L BUN 24 H (7-18) mg/dL Creatinine 0.97 (0.55-1.02) mg/dL Est Cr Clr Drug Dosing 37.81 mL/min Estimated GFR (MDRD) 56 BUN/Creatinine Ratio 24.7 (No establ ref range) Glucose 146 H (70-99) mg/dL Lactic Acid (0.4-2.0) mmol/L Calcium 8.9 (8.5-10.1) mg/dL Magnesium 2.1 (1.8-2.4) mg/dL Total Bilirubin 0.3 (0.2-1.0) mg/dL AST 20 (15-37) U/L ALT 26 (14-59) U/L Alkaline Phosphatase 103 (46-116) U/L Ammonia (11-32) umol/L Troponin I High Sens 49 (<=51) pg/mL C-Reactive Protein < 0.2 (0.0-0.9) mg/dL B-Natriuretic Peptide 473 H (0-100) pg/ml Total Protein 6.9 (6.4-8.2) g/dL Albumin 3.6 (3.4-5.0) g/dL Globulin 3.3 Albumin/Globulin Ratio 1.1 Urine Color (YELLOW) Urine Appearance (CLEAR) Urine pH (5.0-9.0) Ur Specific [place] (1.005-1.030) Urine Protein (NEGATIVE) Urine Glucose (UA) (NEGATIVE) Urine Ketones (NEGATIVE) Urine Occult Blood (NEGATIVE) Urine Nitrite (NEGATIVE) Urine Bilirubin (NEGATIVE) Urine Urobilinogen (0.2-1.0) mg/dL Ur Leukocyte Esterase (NEGATIVE) Urine Opiates Screen (NEGATIVE) Ur Oxycodone Screen (NEGATIVE) Urine Methadone Screen (NEGATIVE) Ur Barbiturates Screen (NEGATIVE) U Tricyclic Antidepress (NEGATIVE) Ur Phencyclidine Scrn (NEGATIVE) Ur Amphetamine Screen (NEGATIVE) U Methamphetamines Scrn (NEGATIVE) Urine MDMA Screen (NEGATIVE) U Benzodiazepines Scrn (NEGATIVE) Urine Cocaine Screen (NEGATIVE) U Marijuana (THC) Screen (NEGATIVE) Ethyl Alcohol < 3 (0) mg/dL SARS-CoV-2 RNA (CORINNE) (NEGATIVE) 10/22/21 10/22/21 10/22/21 Range/Units 14:32 14:32 16:58 WBC (5.0-10.0) 10^3/uL RBC (4.2-5.4) 10^6/uL Hgb (12.0-16.0) g/dL Hct (37.0-47.0) % MCV (80-100) fL MCH (27.0-34.0) pg MCHC (33.0-35.0) g/dL Plt Count (150-450) 10^3/uL Neut % (Auto) (42.2-75.2) % Lymph % (Auto) (20.5-50.1) % [place] % (Auto) (2-8) % Eos % (Auto) (1.0-3.0) % Baso % (Auto) (0.0-1.0) % PT (9.0-12.0) SEC INR (0.9-1.2) APTT (22.0-34.0) SEC Sodium (136-145) mmol/L Potassium (3.5-5.1) mmol/L Chloride (98-107) mmol/L Carbon Dioxide (21-32) mmol/L Anion Gap (7-13) mEq/L BUN (7-18) mg/dL Creatinine (0.55-1.02) mg/dL Est Cr Clr Drug Dosing mL/min Estimated GFR (MDRD) BUN/Creatinine Ratio (No establ ref range) Glucose (70-99) mg/dL Lactic Acid 1.0 (0.4-2.0) mmol/L Calcium (8.5-10.1) mg/dL Magnesium (1.8-2.4) mg/dL Total Bilirubin (0.2-1.0) mg/dL AST (15-37) U/L ALT (14-59) U/L Alkaline Phosphatase (46-116) U/L Ammonia 42 H (11-32) umol/L Troponin I High Sens 66 H* (<=51) pg/mL C-Reactive Protein (0.0-0.9) mg/dL B-Natriuretic Peptide (0-100) pg/ml Total Protein (6.4-8.2) g/dL Albumin (3.4-5.0) g/dL Globulin Albumin/Globulin Ratio Urine Color (YELLOW) Urine Appearance (CLEAR) Urine pH (5.0-9.0) Ur Specific [place] (1.005-1.030) Urine Protein (NEGATIVE) Urine Glucose (UA) (NEGATIVE) Urine Ketones (NEGATIVE) Urine Occult Blood (NEGATIVE) Urine Nitrite (NEGATIVE) Urine Bilirubin (NEGATIVE) Urine Urobilinogen (0.2-1.0) mg/dL Ur Leukocyte Esterase (NEGATIVE) Urine Opiates Screen (NEGATIVE) Ur Oxycodone Screen (NEGATIVE) Urine Methadone Screen (NEGATIVE) Ur Barbiturates Screen (NEGATIVE) U Tricyclic Antidepress (NEGATIVE) Ur Phencyclidine Scrn (NEGATIVE) Ur Amphetamine Screen (NEGATIVE) U Methamphetamines Scrn (NEGATIVE) Urine MDMA Screen (NEGATIVE) U Benzodiazepines Scrn (NEGATIVE) Urine Cocaine Screen (NEGATIVE) U Marijuana (THC) Screen (NEGATIVE) Ethyl Alcohol (0) mg/dL SARS-CoV-2 RNA (CORINNE) (NEGATIVE) Meds: Medications Discontinued Medications Generic Name Dose Route Start Last Admin Trade Name Freq PRN Reason Stop Dose Admin Benzocaine/Menthol Confirm 10/22/21 18:01 Benzocaine/Cetylpyridinium/Menthol Lozenge Administered 10/22/21 18:02 Dose 2 lozenge .ROUTE .STK-MED ONE Furosemide 40 mg 10/22/21 17:06 10/22/21 17:21 Furosemide 40 Mg/4 Ml Vial IVPUSH 10/22/21 17:07 40 mg ONETIME ONE Administration - Radiology Interpretation Free Text/Narrative:: [facility] [place] [facility] Final Radiology Report Call: [phone] assistance Online chat: [email or web address] Name: LOUISE THORPE Age: 76Years F Date: 10/22/2021 SSN: -- : [id number] Study: CT HEAD WO CONT Requesting Physician: Guerline Yoo Images: 140 Addl Studies: Provided Clinical History: new seizure vs syncope Contrast: Without Contrast Medium: Contrast Amount: Contrast Method: CONFIDENTIALITY STATEMENT This report is intended only for use by the referring physician, and only in accordance with law. If you received this in error, call [phone]. Page 1 of 1 PROCEDURE INFORMATION: Exam: CT Head Without Contrast Exam date and time: 10/22/2021 2:47 PM Age: 76 years old Clinical indication: Other: Seizure vs syncope; Additional info: New seizure vs syncope TECHNIQUE: Imaging protocol: Computed tomography of the head without contrast. Radiation optimization: All CT scans at this facility use at least one of these dose optimization techniques: automated exposure control; mA and/or kV adjustment per patient size (includes targeted exams where dose is matched to clinical indication); or iterative reconstruction. COMPARISON: CT Head wo Cont 07/04/2016 10:05 AM FINDINGS: Brain: Normal. No hemorrhage. Unremarkable white matter. No mass effect. Cerebral ventricles: No ventriculomegaly. Paranasal sinuses: Left maxillary sinusitis. Mastoid air cells: Visualized mastoid air cells are well aerated. Bones/joints: Unremarkable. No acute fracture. Soft tissues: Unremarkable. IMPRESSION: No acute intracranial abnormality. Thank you for allowing us to participate in the care of your patient. Dictated and Authenticated by: Dominik Qiu MD 10/22/2021 3:08 PM Central Time ([place] & [place]) [facility] [place] [facility] Final Radiology Report Call: [phone] assistance Online chat: [email or web address] Name: LOUISE THORPE Age: 76Years F Date: 10/22/2021 SSN: -- : [id number] Study: CR CHEST 1V FRONTAL Requesting Physician: Guerline Yoo Images: 1 Addl Studies: Provided Clinical History: r/o CHF; BNP 429; Weight up 4 lbs Contrast: Contrast Medium: Contrast Amount: Contrast Method: CONFIDENTIALITY STATEMENT This report is intended only for use by the referring physician, and only in accordance with law. If you received this in error, call [phone]. Page 1 of 1 PROCEDURE INFORMATION: Exam: XR Chest Exam date and time: 10/22/2021 3:48 PM Age: 76 years old Clinical indication: Other: R/O chf; Prior surgery; Additional info: R/O chf; Bnp 429; Weight up 4 lbs TECHNIQUE: Imaging protocol: XR of the chest. Views: 1 view. COMPARISON: CR Chest 1V Frontal 09/06/2019 2:16 PM FINDINGS: Tubes, catheters and devices: Median sternotomy sutures. Lungs: Pulmonary vasculature and basilar interstitial markings slightly prominent. Pleural spaces: Unremarkable. No pleural effusion. No pneumothorax. Heart/Mediastinum: Heart size normal. Bones/joints: Unremarkable. IMPRESSION: Possible early fluid overload. Thank you for allowing us to participate in the care of your patient. Dictated and Authenticated by: Dominik Qiu MD 10/22/2021 3:55 PM Central Time ([place] & [place]) - Re-Assessments/Exams Free Text/Narrative Re-Assessment/Exam: 10/22/[address] obtained. Will obtain lab work, CXR and EKG. Findings of examination, imaging, and lab work reviewed with patient. Will treat fluid overload with Lasix 40mg IVP. Will trend troponin. Patient verbalized understanding and agreement with the plan of care. Repeat EKG unchanged; Repeat troponin increased to 66. Patient continues to deny chest pain or shortness of breath. Case discussed with tanya Waldrop at this facility, who kindly accepted patient for observation for CHF, syncope, and troponin elevation. Repeat lab work and discussion with Dr. Graham reviewed with patient who verbalized understanding and agreement with the plan of care. Departure - Departure Time of Disposition: 18:18 Disposition: Admitted As Inpatient 67 Condition: Good Clinical Impression: Hyponatremia, History of anticoagulant use, Elevated troponin Atrial fibrillation Qualifiers: Atrial fibrillation type: permanent Qualified Code(s): I48.21 - Permanent atrial fibrillation Congestive heart failure Qualifiers: Heart failure type: unspecified Heart failure chronicity: acute on chronic Qualified Code(s): I50.9 - Heart failure, unspecified - Discharge Information Sepsis Event Note (ED) - Evaluation Sepsis Screening Result: No Definite Risk - Focused Exam Vital Signs: Vital Signs Temp Pulse Resp BP Pulse Ox 10/22/21 13:50 97.0 F 65 18 170/72 H 96
[2021-10-22 15:04] LABS: CHLORIDE,CL 95 mmol/L (98-107); SODIUM,NA 132 mmol/L (136-145)
--- NOTE | 2021-10-22 15:08 | CT ---
PROCEDURE INFORMATION: Exam: CT Head Without Contrast Exam date and time: 10/22/2021 2:47 PM Age: 76 years old Clinical indication: Other: Seizure vs syncope; Additional info: New seizure vs syncope TECHNIQUE: Imaging protocol: Computed tomography of the head without contrast. Radiation optimization: All CT scans at this facility use at least one of these dose optimization techniques: automated exposure control; mA and/or kV adjustment per patient size (includes targeted exams where dose is matched to clinical indication); or iterative reconstruction. COMPARISON: CT Head wo Cont 07/04/2016 10:05 AM FINDINGS: Brain: Normal. No hemorrhage. Unremarkable white matter. No mass effect. Cerebral ventricles: No ventriculomegaly. Paranasal sinuses: Left maxillary sinusitis. Mastoid air cells: Visualized mastoid air cells are well aerated. Bones/joints: Unremarkable. No acute fracture. Soft tissues: Unremarkable. IMPRESSION: No acute intracranial abnormality.
[2021-10-22 15:09] LABS: PTT,PARTIAL THROMBOPLSTIN TIME 40.9 SEC (22.0-34.0)
[2021-10-22 15:34] LABS: AMPHETAMINES,URINE NEGATIVE (NEGATIVE); BARBITURATES,URINE NEGATIVE (NEGATIVE); BENZODIAZEPINE,URINE NEGATIVE (NEGATIVE); MDMA (ECSTASY), URINE NEGATIVE (NEGATIVE); METHADONE,URINE NEGATIVE (NEGATIVE); METHAMPHETAMINES,URINE NEGATIVE (NEGATIVE); OPIATES,URINE NEGATIVE (NEGATIVE); OXYCODONE,URINE NEGATIVE (NEGATIVE); PHENCYCLIDINE,URINE NEGATIVE (NEGATIVE); TCA,URINE NEGATIVE (NEGATIVE)
--- NOTE | 2021-10-22 15:55 | CR ---
PROCEDURE INFORMATION: Exam: XR Chest Exam date and time: 10/22/2021 3:48 PM Age: 76 years old Clinical indication: Other: R/O chf; Prior surgery; Additional info: R/O chf; Bnp 429; Weight up 4 lbs TECHNIQUE: Imaging protocol: XR of the chest. Views: 1 view. COMPARISON: CR Chest 1V Frontal 09/06/2019 2:16 PM FINDINGS: Tubes, catheters and devices: Median sternotomy sutures. Lungs: Pulmonary vasculature and basilar interstitial markings slightly prominent. Pleural spaces: Unremarkable. No pleural effusion. No pneumothorax. Heart/Mediastinum: Heart size normal. Bones/joints: Unremarkable. IMPRESSION: Possible early fluid overload.
[2021-10-22] MEDS ORDERED: Furosemide 40 MG/4 ML VIAL IVPUSH ONE (17:06)
[2021-10-22] MEDS ORDERED: Benzocaine/Cetylpyridinium/Menthol Lozenge ONE (18:01)
--- NOTE | 2021-10-22 19:10 | PCM.HP ---
H&P History of Present Illness - General Date of Service: 10/22/21 Admit Problem/Dx: Admission Diagnosis/Problem Admission Diagnosis/Problem acute on chronic combined systolic and diastolic heart failure Source of Information: Patient, Old Records, Provider History Limitations: Reports: No Limitations - History of Present Illness Onset of Symptoms: Reports: Gradual Symptom Onset Date: 10/20/21 Duration of Symptoms: Reports: Day(s):, Getting Worse Other HPI/Comments: Louise is a solomon 76 year old woman with PMH significant for chronic combined systolic and diastolic heart failure, CAD with hx of EFREN x3, acquired hypothyroidism, essential HTN , mixed HLD, and persistent atrial fibrillation on shelter anticoagulation with warfarin. She presented to the ED on 10/22/21 after having a "spell" at home. She states that she suddenly felt like she couldn't swallow, began having whole body muscle spasms and then returned to normal with no intervention over the course of about 10-15 minutes. She said that she has had symptoms like this in the past when she has been having a heart failure exacerbation. She notes associated symptoms of 3-5lb unintentional weight gain in the past 2 days as well as increased BLE edema. She denies any respiratory symptoms but states that this will eventually progress if it is not treated right away. she did nothing at home to improve symptoms but says that sometimes she does take extra lasix- although not this time. she says that increase activity makes it worse and rest makes it better. same symptoms in the past during heart failure exacerbations. Worse at night when she is trying to lie down vs during the day when she is up and walking around. - Related Data Allergies/Adverse Reactions: Allergies Allergy/AdvReac Type Severity Reaction Status Date / Time hydrochlorothiazide Allergy Other Verified 10/22/21 19:34 latex Allergy Hives Verified 10/22/21 14:19 lisinopril Allergy Change Verified 10/22/21 14:19 Mental Status loratadine Allergy Other Verified 10/22/21 19:34 adhesive AdvReac Other Verified 10/22/21 19:33 tetanus toxoid, adsorbed AdvReac Nausea and Verified 10/22/21 14:19 Vomiting Home Medications: Home Meds Latanoprost [Xalatan 0.005% Ophth Soln] 1 drop EYEBOTH BEDTIME 07/09/14 [History] Nitroglycerin [Nitrostat] 0.4 mg SL ASDIRECTED PRN 07/09/14 [History] Warfarin Sodium [Jantoven] 5 mg PO ASDIRECTED 07/12/14 [History] Pravastatin [Pravachol] 40 mg PO BEDTIME #30 tablet 07/05/16 [Rx] Phytonadione [Vitamin K] 100 mcg PO DAILY 12/27/17 [History] Propylene Glycol/PEG 400/Pf [Systane 0.3-0.4% Eye Drops] 1 drop EYEBOTH ASDIRECTED PRN 12/27/17 [History] Clopidogrel [Plavix] 75 mg PO DAILY 06/23/19 [History] Furosemide 40 mg PO DAILY PRN 06/23/19 [History] Isosorbide Mononitrate [Imdur] 60 mg PO DAILY 06/23/19 [History] Levothyroxine [Synthroid] 112 mcg PO DAILY 06/23/19 [History] Losartan [Cozaar] 150 mg PO DAILY 06/23/19 [History] Magnesium Oxide [Magnesium] 250 mg PO BID 06/23/19 [History] rOPINIRole [Requip] 1 mg PO BEDTIME 06/23/19 [History] Calcium Carb/D3/Magnesium/Zinc [Cody Mag Zinc + D Tablet] 1 tab PO TID 07/21/19 [History] Metoprolol Succinate [Toprol Xl] 100 mg PO BEDTIME 07/31/19 [History] Spironolactone [Aldactone] 12.5 mg PO DAILY 07/31/19 [History] Acetaminophen [Acetaminophen 8 Hour] 500 mg PO Q8HR 08/20/19 [History] Triamcinolone Acetonide [Triamcinolone Acetonide 0.1% Crm] 1 applic TOP A SDIRECTED 08/20/19 [History] Lutein/Minerals/Vit A,C & E [I-Toni] 1 each PO DAILY 09/06/19 [History] Past Medical History HEENT History: Reports: Impaired Vision Cardiovascular History: Reports: Afib, Angina, Bypass, CAD, High Cholesterol, Hypertension, PTCA, Stents Respiratory History: Reports: None Gastrointestinal History: Reports: Celiac Disease Genitourinary History: Reports: Urinary Incontinence [employer]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: Musculoskeletal History: Reports: Arthritis Neurological History: Reports: TIA Other Neuro History: this admission Psychiatric History: Reports: None Endocrine/Metabolic History: Reports: Hypothyroidism Hematologic History: Reports: Anticoagulation Therapy Immunologic History: Reports: Other (See Below) Other Immunologic History: celiac disease Oncologic (Cancer) History: Reports: Squamous Cell Carcinoma Dermatologic History: Reports: Other (See Below) Other Dermatologic History: Skin cancer - Infectious Disease History Infectious Disease History: Reports: Chicken Pox, Measles, Mumps, Rubella, Shingles - Past Surgical History HEENT Surgical History: Reports: Cataract Surgery Cardiovascular Surgical History: Reports: Coronary Artery Bypass, Other (See Below) Other Cardiovascular Surgeries/Procedures: cardioversion GI Surgical History: Reports: Cholecystectomy Female Surgical History: Reports: Hysterectomy Other Female Surgeries/Procedures: repair of genitourinary, [place] Social & Family History - Family History Family Medical History: No Pertinent Family History - Tobacco Use Tobacco Use Status *Q: Never Tobacco User Second Hand Smoke Exposure: No - Caffeine Use Caffeine Use: Reports: None Caffeine Use Comment: 3 cups per day. 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 Denies: Fever, Chills, Weakness, Decreased Appetite HEENT: Reports: No Symptoms Pulmonary: Reports: Cough. Denies: Wheezing, Sputum, Hemoptysis Cardiovascular: Reports: No Symptoms, Chest Pain, Dyspnea on Exertion Gastrointestinal: Reports: No Symptoms. Denies: Abdominal Pain, Anorexia, Decreased Appetite Genitourinary: Reports: No Symptoms Musculoskeletal: Reports: No Symptoms Skin: Reports: No Symptoms Psychiatric: Reports: No Symptoms Neurological: Reports: No Symptoms Hematologic/Lymphatic: Reports: No Symptoms Immunologic: Reports: No Symptoms Exam - Exam Exam: See Below - Vital Signs Vital Signs: Last Vital Signs Temp 97.0 F 10/22/21 13:50 Pulse 65 10/22/21 13:50 Resp 18 10/22/21 13:50 BP 170/72 H 10/22/21 13:50 Pulse Ox 96 10/22/21 13:50 Orthostatic Blood Pressure [ 189/87 Standing] Orthostatic Blood Pressure [ 183/82 Sitting] Orthostatic Blood Pressure [ 170/72 Supine] Weight: 168 lb - Exam Quality Assessment: DVT Prophylaxis. No: Supplemental Oxygen, Urinary Catheter General: Alert, Oriented, Cooperative HEENT: Conjunctiva Clear, EOMI, Mucosa Moist & [place] Neck: Supple Lungs: Clear to Auscultation, Normal Respiratory Effort. No: Decreased Breath Sounds, Rales, Stridor, Wheezing Cardiovascular: Irregular Rhythm, Systolic Murmur GI/Abdominal Exam: Normal Bowel Sounds, Soft, Non-Tender (Female) Exam: Deferred Rectal (Female) Exam: Deferred Back Exam: Normal Inspection, Full Range of Motion Extremities: Normal Range of Motion, Non-Tender, Pedal Edema (1+ to BLE to the level of mid reed) Skin: Warm, Dry, Intact Neuro Extensive - Mental Status: Alert, Oriented x3, Normal Cognition, Memory Intact Neuro Extensive - Motor, Sensory, Reflexes: Normal Gait Psychiatric: Alert, Normal Affect, Normal Mood - Patient Data Lab Results Last 24 hrs: Laboratory Results - last 24 hr 10/22/21 10/22/21 10/22/21 Range/Units 13:45 13:50 14:24 WBC (5.0-10.0) 10^3/uL RBC (4.2-5.4) 10^6/uL Hgb (12.0-16.0) g/dL Hct (37.0-47.0) % MCV (80-100) fL MCH (27.0-34.0) pg MCHC (33.0-35.0) g/dL Plt Count (150-450) 10^3/uL Neut % (Auto) (42.2-75.2) % Lymph % (Auto) (20.5-50.1) % [place] % (Auto) (2-8) % Eos % (Auto) (1.0-3.0) % Baso % (Auto) (0.0-1.0) % PT (9.0-12.0) SEC INR (0.9-1.2) APTT (22.0-34.0) SEC Sodium (136-145) mmol/L Potassium (3.5-5.1) mmol/L Chloride (98-107) mmol/L Carbon Dioxide (21-32) mmol/L Anion Gap (7-13) mEq/L BUN (7-18) mg/dL Creatinine (0.55-1.02) mg/dL Est Cr Clr Drug Dosing mL/min Estimated GFR (MDRD) BUN/Creatinine Ratio (No establ ref range) Glucose (70-99) mg/dL Lactic Acid (0.4-2.0) mmol/L Calcium (8.5-10.1) mg/dL Magnesium (1.8-2.4) mg/dL Total Bilirubin (0.2-1.0) mg/dL AST (15-37) U/L ALT (14-59) U/L Alkaline Phosphatase (46-116) U/L Ammonia (11-32) umol/L Troponin I High Sens (<=51) pg/mL C-Reactive Protein (0.0-0.9) mg/dL B-Natriuretic Peptide (0-100) pg/ml Total Protein (6.4-8.2) g/dL Albumin (3.4-5.0) g/dL Globulin Albumin/Globulin Ratio Urine Color Yellow (YELLOW) Urine Appearance Clear (CLEAR) Urine pH 6.5 (5.0-9.0) Ur Specific Melissa 1.020 (1.005-1.030) Urine Protein Negative (NEGATIVE) Urine Glucose (UA) Negative (NEGATIVE) Urine Ketones Negative (NEGATIVE) Urine Occult Blood Negative (NEGATIVE) Urine Nitrite Negative (NEGATIVE) Urine Bilirubin Negative (NEGATIVE) Urine Urobilinogen 0.2 (0.2-1.0) mg/dL Ur Leukocyte Esterase Negative (NEGATIVE) Urine Opiates Screen Negative (NEGATIVE) Ur Oxycodone Screen Negative (NEGATIVE) Urine Methadone Screen Negative (NEGATIVE) Ur Barbiturates Screen Negative (NEGATIVE) U Tricyclic Antidepress Negative (NEGATIVE) Ur Phencyclidine Scrn Negative (NEGATIVE) Ur Amphetamine Screen Negative (NEGATIVE) U Methamphetamines Scrn Negative (NEGATIVE) Urine MDMA Screen Negative (NEGATIVE) U Benzodiazepines Scrn Negative (NEGATIVE) Urine Cocaine Screen Negative (NEGATIVE) U Marijuana (THC) Screen Negative (NEGATIVE) Ethyl Alcohol (0) mg/dL SARS-CoV-2 RNA (CORINNE) Negative (NEGATIVE) 10/22/21 10/22/21 10/22/21 Range/Units 14:32 14:32 14:32 WBC 5.0 (5.0-10.0) 10^3/uL RBC 4.41 (4.2-5.4) 10^6/uL Hgb 14.1 (12.0-16.0) g/dL Hct 41.5 (37.0-47.0) % MCV 94.1 (80-100) fL MCH 32.0 (27.0-34.0) pg MCHC 34.0 (33.0-35.0) g/dL Plt Count 248 (150-450) 10^3/uL Neut % (Auto) 51.6 (42.2-75.2) % Lymph % (Auto) 30.2 (20.5-50.1) % [place] % (Auto) 11.5 H (2-8) % Eos % (Auto) 6.5 H (1.0-3.0) % Baso % (Auto) 0.2 (0.0-1.0) % PT 26.8 H (9.0-12.0) SEC INR 2.7 H (0.9-1.2) APTT 40.9 H (22.0-34.0) SEC Sodium 132 L (136-145) mmol/L Potassium 5.0 (3.5-5.1) mmol/L Chloride 95 L (98-107) mmol/L Carbon Dioxide 31 (21-32) mmol/L Anion Gap 11.0 (7-13) mEq/L BUN 24 H (7-18) mg/dL Creatinine 0.97 (0.55-1.02) mg/dL Est Cr Clr Drug Dosing 37.81 mL/min Estimated GFR (MDRD) 56 BUN/Creatinine Ratio 24.7 (No establ ref range) Glucose 146 H (70-99) mg/dL Lactic Acid (0.4-2.0) mmol/L Calcium 8.9 (8.5-10.1) mg/dL Magnesium 2.1 (1.8-2.4) mg/dL Total Bilirubin 0.3 (0.2-1.0) mg/dL AST 20 (15-37) U/L ALT 26 (14-59) U/L Alkaline Phosphatase 103 (46-116) U/L Ammonia (11-32) umol/L Troponin I High Sens 49 (<=51) pg/mL C-Reactive Protein < 0.2 (0.0-0.9) mg/dL B-Natriuretic Peptide 473 H (0-100) pg/ml Total Protein 6.9 (6.4-8.2) g/dL Albumin 3.6 (3.4-5.0) g/dL Globulin 3.3 Albumin/Globulin Ratio 1.1 Urine Color (YELLOW) Urine Appearance (CLEAR) Urine pH (5.0-9.0) Ur Specific Melissa (1.005-1.030) Urine Protein (NEGATIVE) Urine Glucose (UA) (NEGATIVE) Urine Ketones (NEGATIVE) Urine Occult Blood (NEGATIVE) Urine Nitrite (NEGATIVE) Urine Bilirubin (NEGATIVE) Urine Urobilinogen (0.2-1.0) mg/dL Ur Leukocyte Esterase (NEGATIVE) Urine Opiates Screen (NEGATIVE) Ur Oxycodone Screen (NEGATIVE) Urine Methadone Screen (NEGATIVE) Ur Barbiturates Screen (NEGATIVE) U Tricyclic Antidepress (NEGATIVE) Ur Phencyclidine Scrn (NEGATIVE) Ur Amphetamine Screen (NEGATIVE) U Methamphetamines Scrn (NEGATIVE) Urine MDMA Screen (NEGATIVE) U Benzodiazepines Scrn (NEGATIVE) Urine Cocaine Screen (NEGATIVE) U Marijuana (THC) Screen (NEGATIVE) Ethyl Alcohol < 3 (0) mg/dL SARS-CoV-2 RNA (CORINNE) (NEGATIVE) 10/22/21 10/22/21 10/22/21 Range/Units 14:32 14:32 16:58 WBC (5.0-10.0) 10^3/uL RBC (4.2-5.4) 10^6/uL Hgb (12.0-16.0) g/dL Hct (37.0-47.0) % MCV (80-100) fL MCH (27.0-34.0) pg MCHC (33.0-35.0) g/dL Plt Count (150-450) 10^3/uL Neut % (Auto) (42.2-75.2) % Lymph % (Auto) (20.5-50.1) % [place] % (Auto) (2-8) % Eos % (Auto) (1.0-3.0) % Baso % (Auto) (0.0-1.0) % PT (9.0-12.0) SEC INR (0.9-1.2) APTT (22.0-34.0) SEC Sodium (136-145) mmol/L Potassium (3.5-5.1) mmol/L Chloride (98-107) mmol/L Carbon Dioxide (21-32) mmol/L Anion Gap (7-13) mEq/L BUN (7-18) mg/dL Creatinine (0.55-1.02) mg/dL Est Cr Clr Drug Dosing mL/min Estimated GFR (MDRD) BUN/Creatinine Ratio (No establ ref range) Glucose (70-99) mg/dL Lactic Acid 1.0 (0.4-2.0) mmol/L Calcium (8.5-10.1) mg/dL Magnesium (1.8-2.4) mg/dL Total Bilirubin (0.2-1.0) mg/dL AST (15-37) U/L ALT (14-59) U/L Alkaline Phosphatase (46-116) U/L Ammonia 42 H (11-32) umol/L Troponin I High Sens 66 H* (<=51) pg/mL C-Reactive Protein (0.0-0.9) mg/dL B-Natriuretic Peptide (0-100) pg/ml Total Protein (6.4-8.2) g/dL Albumin (3.4-5.0) g/dL Globulin Albumin/Globulin Ratio Urine Color (YELLOW) Urine Appearance (CLEAR) Urine pH (5.0-9.0) Ur Specific Melissa (1.005-1.030) Urine Protein (NEGATIVE) Urine Glucose (UA) (NEGATIVE) Urine Ketones (NEGATIVE) Urine Occult Blood (NEGATIVE) Urine Nitrite (NEGATIVE) Urine Bilirubin (NEGATIVE) Urine Urobilinogen (0.2-1.0) mg/dL Ur Leukocyte Esterase (NEGATIVE) Urine Opiates Screen (NEGATIVE) Ur Oxycodone Screen (NEGATIVE) Urine Methadone Screen (NEGATIVE) Ur Barbiturates Screen (NEGATIVE) U Tricyclic Antidepress (NEGATIVE) Ur Phencyclidine Scrn (NEGATIVE) Ur Amphetamine Screen (NEGATIVE) U Methamphetamines Scrn (NEGATIVE) Urine MDMA Screen (NEGATIVE) U Benzodiazepines Scrn (NEGATIVE) Urine Cocaine Screen (NEGATIVE) U Marijuana (THC) Screen (NEGATIVE) Ethyl Alcohol (0) mg/dL SARS-CoV-2 RNA (CORINNE) (NEGATIVE) Result Diagrams: 10/22/21 14:32 10/22/21 14:32 Problem List Initiated/Reviewed/Updated: Yes Orders Last 24hrs: Active Orders 24 hr Category Date Time Status Admission Diagnosis [ADT] Stat ADT 10/22/21 18:15 Ordered Admission Status [Patient Status] [ADT] Routine ADT 10/22/21 18:15 Active Assessment/Plan Comment:: ACUTE CONDITIONS Acute on chronic combined systolic and diastolic heart failure: 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 discussed weight loss, exercise, healthy diet - CAD, [place] heart, [place] artery, unspecified angina: continue ASA 81mg once daily in addition to meds for HTN and HLD - Essential HTN: continue entresto 97-103 bid - Mixed HLD: continue pravastatin 40mg nightly - Hx of EFREN to coronary vessel: continue plavix 75mg once daily - RLS: continue requip 1.25mg nightly DVT prophylaxis: warfarin Code status: DNR/DNI, discussed at length today. advanced directive complete.
[2021-10-22] MEDS ORDERED: Sodium Chloride 0.9% 10 ML Syringe FLUSH PRN (19:14)
[2021-10-22] MEDS ORDERED: Ondansetron 4 MG Tab.DIS PO PRN (19:14)
[2021-10-22] MEDS ORDERED: Acetaminophen 325 MG Tab PO PRN (19:14)
[2021-10-22] MEDS ORDERED: NITROGLYCERIN 0.4 MG SL PRN (19:22)
[2021-10-22] MEDS ORDERED: Non-Formulary Medication 1 Each (Triamcinolone Acetonide [Triamcinolone Acetonide 0.1% Crm TOP SCH (19:30)
[2021-10-22] MEDS ORDERED: MAGNESIUM OXIDE 250 MG PO SCH (21:00)
[2021-10-22] MEDS ORDERED: ROPINIROLE 1 MG PO SCH (21:00)
[2021-10-22] MEDS ORDERED: PRAVASTATIN 40 MG PO SCH (21:00)
[2021-10-22] MEDS ORDERED: Latanoprost 0.005% Ophth Soln 2.5 ML Bottle ** OWN MED EYEBOTH SCH (21:00)
[2021-10-22] MEDS ORDERED: Non-Formulary Medication 1 Each (Ropinirole [Requip] 0.5 MG Tablet) PO SCH (21:00)
[2021-10-22] MEDS ORDERED: METOPROLOL SUCCINATE 100 MG PO SCH (21:00)
[2021-10-22] MEDS ORDERED: ROPINIROLE 0.25 MG PO SCH (21:00)
[2021-10-22] MEDS ORDERED: ACETAMINOPHEN 650 MG PO SCH (22:00)
[2021-10-22] MEDS: VALSARTAN PO SCH (22:04)
[2021-10-22] MEDS: SACUBITRIL PO SCH (22:04)
[2021-10-23] MEDS ORDERED: LEVOTHYROXINE 137 MCG PO SCH (06:00)
[2021-10-23 06:39] LABS: ANION GAP 12.8 mEq/L (7-13); CHLORIDE,CL 97 mmol/L (98-107); SODIUM,NA 134 mmol/L (136-145)
[2021-10-23] MEDS ORDERED: Furosemide 40 MG/4 ML VIAL IVPUSH ONE (07:00)
[2021-10-23] MEDS: VALSARTAN PO SCH (08:09)
[2021-10-23] MEDS: SACUBITRIL PO SCH (08:09)
[2021-10-23] MEDS ORDERED: Non-Formulary Medication 1 Each (Levothyroxine [Synthroid] 100 MCG Tablet) PO SCH (09:00)
[2021-10-23] MEDS ORDERED: Non-Formulary Medication 1 Each (Losartan [Cozaar] 50 MG Tablet) PO SCH (09:00)
[2021-10-23] MEDS ORDERED: SPIRONOLACTONE 25 MG PO SCH (09:00)
[2021-10-23] MEDS ORDERED: LUTEIN PO SCH (09:00)
[2021-10-23] MEDS ORDERED: Non-Formulary Medication 1 Each (Isosorbide Mononitrate [Imdur] 60 MG Tab.Er) PO SCH (09:00)
[2021-10-23] MEDS ORDERED: CLOPIDOGREL 75 MG PO SCH (09:00)
[2021-10-23] MEDS ORDERED: Non-Formulary Medication 1 Each (Phytonadione [Vitamin K] 100 MCG Tablet) PO SCH (09:00)
[2021-10-23] MEDS ORDERED: MINERALS PO SCH (09:00)
[2021-10-23] MEDS ORDERED: [UNRECOGNIZED DRUG - OTHER] PO SCH (09:00)
[2021-10-23] MEDS ORDERED: VIT A C PO SCH (09:00)
[2021-10-23] MEDS ORDERED: Potassium Chloride 10 MEQ Tab.ER PO SCH (12:00)
[2021-10-23 12:01] VITALS: BP 116/54; PULSE 68
--- NOTE | 2021-10-23 13:02 | PCM.DCSUM1 ---
Discharge Summary - Hospital Course Brief History: see below Diagnosis: Stroke: Yes Modified [place] Scale: No Symptoms at All Modified [place] Scale Score: 0 - Discharge Data Discharge Date: 10/23/21 Discharge Disposition: Home, Self-Care 01 Condition: Good - Referral to Home Health Primary Care Physician: PCP None - Patient Summary/Data Hospital Course: Louise is a 76 year old woman who presented to the ED on the evening of 10/22/21 with complaints of a "spell". associated symptoms included BLE edema and and unintentional weight gain of 5 pounds in the previous 2-3 days. CXR revealed increased pulmonary vascular congestion and BNP was elevated to 470s. Pt was not requiring any supplemental oxygen but trop was elevated so patient was given 40mg IV lasix and was admitted for observation and trop trend to rule out cardiac cause. Of note, her SBP in the ED was also in the 180s. most recent echo initially available revealed mild global hypokinesis and and EF of 25-30% in 09/2020. Pt reported that this has since improved to 50%. Echo was received for verification prior to discharge from the hospital. She did have a MUGA scan on 06/29/21 which showed EF improved to 51%. Pt diuresed well while inpatient. She received an additional 40mg IV lasix on the morning of 10/23. education provided at bedside regarding heart healthy diet and 2g daily sodium restriction. Pt was under the impression that her hyponatremia was secondary to not having enough salt in her diet so had inadvertently increased her salt intake to try to correct this which led to her heart failure exacerbation. She was thought to be medically stable for discharge from the hospital on the afternoon of 10/23. She will require close follow up with the HF clinic as well as with her PCP. She was updated on plan of care at bedside and had no further questions or concerns at the time of discharge. - Patient Instructions Diet: Heart Healthy Diet, Low Sodium (2g Na per 24 hrs ), Fluid Restriction (1.8L fluid restrict daily) Other/Special Instructions: notify PCP if weight increased >3 lbs above baseline - Discharge Plan *PRESCRIPTION DRUG MONITORING PROGRAM REVIEWED*: Not Applicable *COPY OF PRESCRIPTION DRUG MONITORING REPORT IN PATIENT SHIRA: Not Applicable Home Medications: Home Meds Latanoprost [Xalatan 0.005% Ophth Soln] 1 drop EYEBOTH 07/09/14 [History] Nitroglycerin [Nitrostat] 0.4 mg SL ASDIRECTED PRN 07/09/14 [History] Pravastatin [Pravachol] 40 mg PO BEDTIME #30 tablet 07/05/16 [Rx] Propylene Glycol/PEG 400/Pf [Systane 0.3-0.4% Eye Drops] 1 drop EYEBOTH Q4H PRN 12/27/17 [History] Clopidogrel [Plavix] 75 mg PO DAILY 06/23/19 [History] Furosemide 20 mg PO DAILY PRN 06/23/19 [History] Losartan [Cozaar] 150 mg PO DAILY 06/23/19 [History] rOPINIRole [Requip] 1 mg PO BEDTIME 06/23/19 [History] Metoprolol Succinate [Toprol Xl] 100 mg PO BEDTIME 07/31/19 [History] Acetaminophen [Acetaminophen 8 Hour] 500 mg PO Q6HR 08/20/19 [History] Triamcinolone Acetonide [Triamcinolone Acetonide 0.1% Crm] 1 applic TOP ASDIRECTED 08/20/19 [History] Benzonatate [Tessalon Perles] 100 mg PO TID PRN 10/22/21 [History] Sacubitril/Valsartan [Entresto 97 mg-103 mg Tablet] 1 tab PO BID 10/22/21 [History] Warfarin Sodium [Jantoven] 5 mg PO DAILY 10/22/21 [History] Warfarin [Coumadin] 1 mg PO ASDIRECTED 10/22/21 [History] rOPINIRole [Requip] 0.25 mg PO QPM 10/22/21 [History] Levothyroxine Sodium [Levothyroxine] 137 mcg PO DAILY 10/23/21 [History] Oxygen Therapy Mode: Room Air Patient Handouts: Heart Failure, Self-Care, [id number], Heart-Healthy Eating Plan, [id number], Cooking With Less Salt, Heart Failure Eating Plan Referrals: Kathy Mathew NP [Ordering Only Provider] - - Discharge Summary/Plan Comment DC Time >30 min.: Yes Total # of Minutes for Discharge Time: 45 - General Info Functional Status: Reports: Pain Controlled - Review of Systems General: Reports: No Symptoms HEENT: Reports: No Symptoms Pulmonary: Reports: No Symptoms Cardiovascular: Reports: No Symptoms Gastrointestinal: Reports: No Symptoms Genitourinary: Reports: No Symptoms Musculoskeletal: Reports: No Symptoms Skin: Reports: No Symptoms Neurological: Reports: No Symptoms Psychiatric: Reports: No Symptoms - Patient Data Vitals - Most Recent: Last Vital Signs Temp 96.5 F L 10/23/21 12:00 Pulse 68 10/23/21 12:00 Resp 20 10/23/21 12:00 BP 116/54 L 10/23/21 12:00 Pulse Ox 97 10/23/21 12:00 Orthostatic Blood Pressure [ 189/87 Standing] Orthostatic Blood Pressure [ 183/82 Sitting] Orthostatic Blood Pressure [ 170/72 Supine] Weight - Most Recent: 161 lb 3.2 oz I&O - Last 24 hours: Intake & Output 10/22/21 10/23/21 10/23/21 22:59 06:59 14:59 Intake Total 200 200 160 Output Total 450 975 Balance 200 -250 -815 Lab Results - Last 24 hrs: Laboratory Results - last 24 hr 10/22/21 10/22/21 10/22/21 Range/Units 13:45 13:50 14:24 WBC (5.0-10.0) 10^3/uL RBC (4.2-5.4) 10^6/uL Hgb (12.0-16.0) g/dL Hct (37.0-47.0) % MCV (80-100) fL MCH (27.0-34.0) pg MCHC (33.0-35.0) g/dL Plt Count (150-450) 10^3/uL Neut % (Auto) (42.2-75.2) % Lymph % (Auto) (20.5-50.1) % [place] % (Auto) (2-8) % Eos % (Auto) (1.0-3.0) % Baso % (Auto) (0.0-1.0) % PT (9.0-12.0) SEC INR (0.9-1.2) APTT (22.0-34.0) SEC Sodium (136-145) mmol/L Potassium (3.5-5.1) mmol/L Chloride (98-107) mmol/L Carbon Dioxide (21-32) mmol/L Anion Gap (7-13) mEq/L BUN (7-18) mg/dL Creatinine (0.55-1.02) mg/dL Est Cr Clr Drug Dosing mL/min Estimated GFR (MDRD) BUN/Creatinine Ratio (No establ ref range) Glucose (70-99) mg/dL Lactic Acid (0.4-2.0) mmol/L Calcium (8.5-10.1) mg/dL Magnesium (1.8-2.4) mg/dL Total Bilirubin (0.2-1.0) mg/dL AST (15-37) U/L ALT (14-59) U/L Alkaline Phosphatase (46-116) U/L Ammonia (11-32) umol/L Troponin I High Sens (<=51) pg/mL C-Reactive Protein (0.0-0.9) mg/dL B-Natriuretic Peptide (0-100) pg/ml Total Protein (6.4-8.2) g/dL Albumin (3.4-5.0) g/dL Globulin Albumin/Globulin Ratio Urine Color Yellow (YELLOW) Urine Appearance Clear (CLEAR) Urine pH 6.5 (5.0-9.0) Ur Specific [place] 1.020 (1.005-1.030) Urine Protein Negative (NEGATIVE) Urine Glucose (UA) Negative (NEGATIVE) Urine Ketones Negative (NEGATIVE) Urine Occult Blood Negative (NEGATIVE) Urine Nitrite Negative (NEGATIVE) Urine Bilirubin Negative (NEGATIVE) Urine Urobilinogen 0.2 (0.2-1.0) mg/dL Ur Leukocyte Esterase Negative (NEGATIVE) Urine Opiates Screen Negative (NEGATIVE) Ur Oxycodone Screen Negative (NEGATIVE) Urine Methadone Screen Negative (NEGATIVE) Ur Barbiturates Screen Negative (NEGATIVE) U Tricyclic Antidepress Negative (NEGATIVE) Ur Phencyclidine Scrn Negative (NEGATIVE) Ur Amphetamine Screen Negative (NEGATIVE) U Methamphetamines Scrn Negative (NEGATIVE) Urine MDMA Screen Negative (NEGATIVE) U Benzodiazepines Scrn Negative (NEGATIVE) Urine Cocaine Screen Negative (NEGATIVE) U Marijuana (THC) Screen Negative (NEGATIVE) Ethyl Alcohol (0) mg/dL SARS-CoV-2 RNA (CORINNE) Negative (NEGATIVE) 10/22/21 10/22/21 10/22/21 Range/Units 14:32 14:32 14:32 WBC 5.0 (5.0-10.0) 10^3/uL RBC 4.41 (4.2-5.4) 10^6/uL Hgb 14.1 (12.0-16.0) g/dL Hct 41.5 (37.0-47.0) % MCV 94.1 (80-100) fL MCH 32.0 (27.0-34.0) pg MCHC 34.0 (33.0-35.0) g/dL Plt Count 248 (150-450) 10^3/uL Neut % (Auto) 51.6 (42.2-75.2) % Lymph % (Auto) 30.2 (20.5-50.1) % [place] % (Auto) 11.5 H (2-8) % Eos % (Auto) 6.5 H (1.0-3.0) % Baso % (Auto) 0.2 (0.0-1.0) % PT 26.8 H (9.0-12.0) SEC INR 2.7 H (0.9-1.2) APTT 40.9 H (22.0-34.0) SEC Sodium 132 L (136-145) mmol/L Potassium 5.0 (3.5-5.1) mmol/L Chloride 95 L (98-107) mmol/L Carbon Dioxide 31 (21-32) mmol/L Anion Gap 11.0 (7-13) mEq/L BUN 24 H (7-18) mg/dL Creatinine 0.97 (0.55-1.02) mg/dL Est Cr Clr Drug Dosing 37.81 mL/min Estimated GFR (MDRD) 56 BUN/Creatinine Ratio 24.7 (No establ ref range) Glucose 146 H (70-99) mg/dL Lactic Acid (0.4-2.0) mmol/L Calcium 8.9 (8.5-10.1) mg/dL Magnesium 2.1 (1.8-2.4) mg/dL Total Bilirubin 0.3 (0.2-1.0) mg/dL AST 20 (15-37) U/L ALT 26 (14-59) U/L Alkaline Phosphatase 103 (46-116) U/L Ammonia (11-32) umol/L Troponin I High Sens 49 (<=51) pg/mL C-Reactive Protein < 0.2 (0.0-0.9) mg/dL B-Natriuretic Peptide 473 H (0-100) pg/ml Total Protein 6.9 (6.4-8.2) g/dL Albumin 3.6 (3.4-5.0) g/dL Globulin 3.3 Albumin/Globulin Ratio 1.1 Urine Color (YELLOW) Urine Appearance (CLEAR) Urine pH (5.0-9.0) Ur Specific [place] (1.005-1.030) Urine Protein (NEGATIVE) Urine Glucose (UA) (NEGATIVE) Urine Ketones (NEGATIVE) Urine Occult Blood (NEGATIVE) Urine Nitrite (NEGATIVE) Urine Bilirubin (NEGATIVE) Urine Urobilinogen (0.2-1.0) mg/dL Ur Leukocyte Esterase (NEGATIVE) Urine Opiates Screen (NEGATIVE) Ur Oxycodone Screen (NEGATIVE) Urine Methadone Screen (NEGATIVE) Ur Barbiturates Screen (NEGATIVE) U Tricyclic Antidepress (NEGATIVE) Ur Phencyclidine Scrn (NEGATIVE) Ur Amphetamine Screen (NEGATIVE) U Methamphetamines Scrn (NEGATIVE) Urine MDMA Screen (NEGATIVE) U Benzodiazepines Scrn (NEGATIVE) Urine Cocaine Screen (NEGATIVE) U Marijuana (THC) Screen (NEGATIVE) Ethyl Alcohol < 3 (0) mg/dL SARS-CoV-2 RNA (CORINNE) (NEGATIVE) 10/22/21 10/22/21 10/22/21 Range/Units 14:32 14:32 16:58 WBC (5.0-10.0) 10^3/uL RBC (4.2-5.4) 10^6/uL Hgb (12.0-16.0) g/dL Hct (37.0-47.0) % MCV (80-100) fL MCH (27.0-34.0) pg MCHC (33.0-35.0) g/dL Plt Count (150-450) 10^3/uL Neut % (Auto) (42.2-75.2) % Lymph % (Auto) (20.5-50.1) % [place] % (Auto) (2-8) % Eos % (Auto) (1.0-3.0) % Baso % (Auto) (0.0-1.0) % PT (9.0-12.0) SEC INR (0.9-1.2) APTT (22.0-34.0) SEC Sodium (136-145) mmol/L Potassium (3.5-5.1) mmol/L Chloride (98-107) mmol/L Carbon Dioxide (21-32) mmol/L Anion Gap (7-13) mEq/L BUN (7-18) mg/dL Creatinine (0.55-1.02) mg/dL Est Cr Clr Drug Dosing mL/min Estimated GFR (MDRD) BUN/Creatinine Ratio (No establ ref range) Glucose (70-99) mg/dL Lactic Acid 1.0 (0.4-2.0) mmol/L Calcium (8.5-10.1) mg/dL Magnesium (1.8-2.4) mg/dL Total Bilirubin (0.2-1.0) mg/dL AST (15-37) U/L ALT (14-59) U/L Alkaline Phosphatase (46-116) U/L Ammonia 42 H (11-32) umol/L Troponin I High Sens 66 H* (<=51) pg/mL C-Reactive Protein (0.0-0.9) mg/dL B-Natriuretic Peptide (0-100) pg/ml Total Protein (6.4-8.2) g/dL Albumin (3.4-5.0) g/dL Globulin Albumin/Globulin Ratio Urine Color (YELLOW) Urine Appearance (CLEAR) Urine pH (5.0-9.0) Ur Specific [place] (1.005-1.030) Urine Protein (NEGATIVE) Urine Glucose (UA) (NEGATIVE) Urine Ketones (NEGATIVE) Urine Occult Blood (NEGATIVE) Urine Nitrite (NEGATIVE) Urine Bilirubin (NEGATIVE) Urine Urobilinogen (0.2-1.0) mg/dL Ur Leukocyte Esterase (NEGATIVE) Urine Opiates Screen (NEGATIVE) Ur Oxycodone Screen (NEGATIVE) Urine Methadone Screen (NEGATIVE) Ur Barbiturates Screen (NEGATIVE) U Tricyclic Antidepress (NEGATIVE) Ur Phencyclidine Scrn (NEGATIVE) Ur Amphetamine Screen (NEGATIVE) U Methamphetamines Scrn (NEGATIVE) Urine MDMA Screen (NEGATIVE) U Benzodiazepines Scrn (NEGATIVE) Urine Cocaine Screen (NEGATIVE) U Marijuana (THC) Screen (NEGATIVE) Ethyl Alcohol (0) mg/dL SARS-CoV-2 RNA (CORNINE) (NEGATIVE) 10/22/21 10/23/21 10/23/21 Range/Units 19:55 00:20 05:30 WBC 4.8 L (5.0-10.0) 10^3/uL RBC 4.53 (4.2-5.4) 10^6/uL Hgb 14.3 (12.0-16.0) g/dL Hct 42.2 (37.0-47.0) % MCV 93.2 (80-100) fL MCH 31.6 (27.0-34.0) pg MCHC 33.9 (33.0-35.0) g/dL Plt Count 270 (150-450) 10^3/uL Neut % (Auto) (42.2-75.2) % Lymph % (Auto) (20.5-50.1) % [place] % (Auto) (2-8) % Eos % (Auto) (1.0-3.0) % Baso % (Auto) (0.0-1.0) % PT (9.0-12.0) SEC INR (0.9-1.2) APTT (22.0-34.0) SEC Sodium (136-145) mmol/L Potassium (3.5-5.1) mmol/L Chloride (98-107) mmol/L Carbon Dioxide (21-32) mmol/L Anion Gap (7-13) mEq/L BUN (7-18) mg/dL Creatinine (0.55-1.02) mg/dL Est Cr Clr Drug Dosing mL/min Estimated GFR (MDRD) BUN/Creatinine Ratio (No establ ref range) Glucose (70-99) mg/dL Lactic Acid (0.4-2.0) mmol/L Calcium (8.5-10.1) mg/dL Magnesium (1.8-2.4) mg/dL Total Bilirubin (0.2-1.0) mg/dL AST (15-37) U/L ALT (14-59) U/L Alkaline Phosphatase (46-116) U/L Ammonia (11-32) umol/L Troponin I High Sens 98 H* 99 H* (<=51) pg/mL C-Reactive Protein (0.0-0.9) mg/dL B-Natriuretic Peptide (0-100) pg/ml Total Protein (6.4-8.2) g/dL Albumin (3.4-5.0) g/dL Globulin Albumin/Globulin Ratio Urine Color (YELLOW) Urine Appearance (CLEAR) Urine pH (5.0-9.0) Ur Specific [place] (1.005-1.030) Urine Protein (NEGATIVE) Urine Glucose (UA) (NEGATIVE) Urine Ketones (NEGATIVE) Urine Occult Blood (NEGATIVE) Urine Nitrite (NEGATIVE) Urine Bilirubin (NEGATIVE) Urine Urobilinogen (0.2-1.0) mg/dL Ur Leukocyte Esterase (NEGATIVE) Urine Opiates Screen (NEGATIVE) Ur Oxycodone Screen (NEGATIVE) Urine Methadone Screen (NEGATIVE) Ur Barbiturates Screen (NEGATIVE) U Tricyclic Antidepress (NEGATIVE) Ur Phencyclidine Scrn (NEGATIVE) Ur Amphetamine Screen (NEGATIVE) U Methamphetamines Scrn (NEGATIVE) Urine MDMA Screen (NEGATIVE) U Benzodiazepines Scrn (NEGATIVE) Urine Cocaine Screen (NEGATIVE) U Marijuana (THC) Screen (NEGATIVE) Ethyl Alcohol (0) mg/dL SARS-CoV-2 RNA (CORINNE) (NEGATIVE) 10/23/21 10/23/21 Range/Units 05:30 05:30 WBC (5.0-10.0) 10^3/uL RBC (4.2-5.4) 10^6/uL Hgb (12.0-16.0) g/dL Hct (37.0-47.0) % MCV (80-100) fL MCH (27.0-34.0) pg MCHC (33.0-35.0) g/dL Plt Count (150-450) 10^3/uL Neut % (Auto) (42.2-75.2) % Lymph % (Auto) (20.5-50.1) % [place] % (Auto) (2-8) % Eos % (Auto) (1.0-3.0) % Baso % (Auto) (0.0-1.0) % PT 24.0 H (9.0-12.0) SEC INR 2.4 H (0.9-1.2) APTT (22.0-34.0) SEC Sodium 134 L (136-145) mmol/L Potassium 3.8 (3.5-5.1) mmol/L Chloride 97 L (98-107) mmol/L Carbon Dioxide 28 (21-32) mmol/L Anion Gap 12.8 (7-13) mEq/L BUN 22 H (7-18) mg/dL Creatinine 0.75 (0.55-1.02) mg/dL Est Cr Clr Drug Dosing 48.96 mL/min Estimated GFR (MDRD) > 60 BUN/Creatinine Ratio (No establ ref range) Glucose 88 (70-99) mg/dL Lactic Acid (0.4-2.0) mmol/L Calcium 9.3 (8.5-10.1) mg/dL Magnesium 2.2 (1.8-2.4) mg/dL Total Bilirubin (0.2-1.0) mg/dL AST (15-37) U/L ALT (14-59) U/L Alkaline Phosphatase (46-116) U/L Ammonia (11-32) umol/L Troponin I High Sens (<=51) pg/mL C-Reactive Protein (0.0-0.9) mg/dL B-Natriuretic Peptide (0-100) pg/ml Total Protein (6.4-8.2) g/dL Albumin (3.4-5.0) g/dL Globulin Albumin/Globulin Ratio Urine Color (YELLOW) Urine Appearance (CLEAR) Urine pH (5.0-9.0) Ur Specific [place] (1.005-1.030) Urine Protein (NEGATIVE) Urine Glucose (UA) (NEGATIVE) Urine Ketones (NEGATIVE) Urine Occult Blood (NEGATIVE) Urine Nitrite (NEGATIVE) Urine Bilirubin (NEGATIVE) Urine Urobilinogen (0.2-1.0) mg/dL Ur Leukocyte Esterase (NEGATIVE) Urine Opiates Screen (NEGATIVE) Ur Oxycodone Screen (NEGATIVE) Urine Methadone Screen (NEGATIVE) Ur Barbiturates Screen (NEGATIVE) U Tricyclic Antidepress (NEGATIVE) Ur Phencyclidine Scrn (NEGATIVE) Ur Amphetamine Screen (NEGATIVE) U Methamphetamines Scrn (NEGATIVE) Urine MDMA Screen (NEGATIVE) U Benzodiazepines Scrn (NEGATIVE) Urine Cocaine Screen (NEGATIVE) U Marijuana (THC) Screen (NEGATIVE) Ethyl Alcohol (0) mg/dL SARS-CoV-2 RNA (CORINNE) (NEGATIVE) Med Orders - Current: Current Medications Acetaminophen (Acetaminophen 325 Mg Tab) 650 mg PO Q4H PRN PRN Reason: Pain (Mild 1-3)/fever Clopidogrel Bisulfate (Clopidogrel 75 Mg Tab Own Med ) 75 mg PO DAILY [facility] Last Admin: 10/23/21 08:08 Dose: 75 mg Documented by: Latanoprost (Latanoprost 0.005% Ophth Soln 2.5 Ml Bottle Own Med ) 0 ml EYEBOTH BEDTIME [facility] Last Admin: 10/22/21 21:27 Dose: 1 drop Documented by: Nitroglycerin (Nitroglycerin 0.4 Mg Tab.Sl Own Med ) 0.4 mg SL ASDIRECTED PRN PRN Reason: Chest Pain Non-Formulary Medication (Acetaminophen [Acetaminophen 8 Hour]) 500 mg PO Q8HR [facility] Metoprolol Succinate [Toprol Xl] 100 Mg Tab.Sr.24h Own Med 100 mg PO BEDTIME [facility] Last Admin: 10/22/21 21:24 Dose: 100 mg Documented by: Non-Formulary Medication (Phytonadione [Vitamin K]) 100 mcg PO DAILY [facility] Pravastatin [ Pravachol] 40mg Tablet Own Med 40 mg PO BEDTIME [facility] Last Admin: 10/22/21 21:25 Dose: 40 mg Documented by: Non-Formulary Medication (Propylene Glycol/Peg 400/Pf [Systane 0.3-0.4% Eye Drop]) 1 drop EYEBOTH ASDIRECTED PRN PRN Reason: Dry Eyes Non-Formulary Medication (Spironolactone [Aldactone]) 12.5 mg PO DAILY [facility] Non-Formulary Medication (Triamcinolone Acetonide [Triamcinolone Acetonide 0.1% Crm]) 1 applic TOP ASDIRECTED [facility] Levothyroxine [ Synthroid] 137 Mcg Tab Own Med 137 mcg PO ACBREAKFAST [facility] Last Admin: 10/23/21 05:42 Dose: 137 mcg Documented by: Ropinirole 1mg Tab * (* Own Med ) 1 each PO BEDTIME [facility] Last Admin: 10/22/21 21:23 Dose: 1 each Documented by: Sacubitril/Valsartan [Entresto] 97/103mg Own Med 1 each PO BID [facility] Last Admin: 10/23/21 08:09 Dose: 1 each Documented by: Ondansetron HCl (Ondansetron 4 Mg Tab.Dis) 4 mg PO Q4H PRN PRN Reason: nausea, able to take PO Potassium Chloride (Potassium Chloride 10 Meq Tab.Er) 40 meq PO BIDMEALS [facility] Stop: 10/24/21 08:01 Last Admin: 10/23/21 12:50 Dose: 40 meq Documented by: Ropinirole HCl (Ropinirole 0.25 Mg Tab Own Med ) 0.25 mg PO BEDTIME [facility] Last Admin: 10/22/21 21:24 Dose: 0.25 mg Documented by: Sodium Chloride (Sodium Chloride 0.9% 10 Ml Syringe) 10 ml FLUSH ASDIRECTED PRN PRN Reason: Keep Vein Open Warfarin Sodium (Warfarin 5 Mg Tab Own Med ) 5 mg PO DAILY@1400 [facility] Discontinued Medications Benzocaine/Menthol (Benzocaine/Cetylpyridinium/Menthol Lozenge) Confirm Administered Dose 2 lozenge .ROUTE .STK-MED ONE Stop: 10/22/21 18:02 Last Admin: 10/22/21 18:26 Dose: Not Given Documented by: Furosemide (Furosemide 40 Mg/4 Ml Vial) 40 mg IVPUSH ONETIME ONE Stop: 10/22/21 17:07 Last Admin: 10/22/21 17:21 Dose: 40 mg Documented by: Furosemide (Furosemide 40 Mg/4 Ml Vial) 40 mg IVPUSH ONETIME ONE Stop: 10/23/21 07:01 Last Admin: 10/23/21 08:08 Dose: 40 mg Documented by: Non-Formulary Medication (Calcium Carb/D3/Magnesium/Zinc [Cody Mag Zinc-D Tablet]) 1 tab PO TID [facility] Last Admin: 10/23/21 00:59 Dose: Not Given Documented by: Non-Formulary Medication (Isosorbide Mononitrate [Imdur]) 60 mg PO DAILY [facility] Non-Formulary Medication (Levothyroxine [Synthroid]) 112 mcg PO DAILY [facility] Non-Formulary Medication (Losartan [Cozaar]) 150 mg PO DAILY [facility] Non-Formulary Medication (Magnesium Oxide [Magnesium]) 250 mg PO BID [facility] Last Admin: 10/23/21 00:59 Dose: Not Given Documented by: Non-Formulary Medication (Lutein/Minerals/Vit A,C & E [I-Toni]) 1 each PO DAILY [facility] - Exam Quality Assessment: Denies: Supplemental Oxygen, DVT Prophylaxis General: Reports: Alert, Oriented, Cooperative HEENT: Reports: EOMI Neck: Reports: Supple, No JVD Lungs: Reports: Clear to Auscultation, Normal Respiratory Effort Cardiovascular: Reports: Regular Rate, Regular Rhythm GI/Abdominal Exam: Soft, Non-Tender (Female) Exam: Deferred Rectal (Female) Exam: Deferred Back Exam: Reports: Full Range of Motion Extremities: Normal Range of Motion, Non-Tender, Pedal Edema (trace) Skin: Reports: Warm, Dry, Intact Neurological: Reports: No New Focal Deficit Psy/Mental Status: Reports: Alert, Normal Affect, Normal Mood *Q Meaningful Use (DIS) - VTE *Q VTE Mechanical Contraindications *Q: Tx/Proc Refused byPt VTE Pharmacological Contraindications *Q: Tx/Proc Refused by Pt VTE Anticoagulation Contraindications: Tx/proc Refused by PT - Stroke *Q Anticoagulation Contraindications Stroke *Q: TX/PROC Refused by PT Antithrombotic Contraindications Stroke *Q: TX/PROC Refused by PT Statin Contraindications Stroke *Q: TX/PROC Refused by PT Rehabilitation Assessment Contraindication *Q: Tx/proc refused by pt - AMI *Q Aspirin Contraindications AMI *Q: TX/PROC Refused by PT Statin Contraindications AMI *Q: TX/Proc Refused by PT
[2021-10-23] MEDS ORDERED: BENZONATATE 100 MG PO PRN (13:10)
[2021-10-23] MEDS ORDERED: Non-Formulary Medication 1 Each (Furosemide [Furosemide] 40 MG Tablet) PO PRN (13:10)
[2021-10-23] MEDS ORDERED: Non-Formulary Medication 1 Each (Warfarin 1 MG Tablet) PO SCH (13:15)
[2021-10-23] MEDS ORDERED: Non-Formulary Medication 1 Each (Ropinirole [Requip] 0.25 MG Tablet) PO SCH (13:15)
[2021-10-23] MEDS ORDERED: WARFARIN 5 MG PO SCH (14:00)
[2021-10-23] MEDS ORDERED: Non-Formulary Medication 1 Each (Sacubitril/Valsartan [Entresto 97 Mg-103 Mg Tablet] 1 EAC PO SCH (21:00)
[2021-10-24] MEDS ORDERED: WARFARIN SODIUM 5 MG PO SCH (09:00)
== END 2021-10-23 14:00 | disposition home or self-care (01) ==
LOC: DL.ED 13:40 → DL.MS 18:15
PROVIDERS: ADMIT Hospitalist; ATTEND Hospitalist
DX: I11.0 Hypertensive heart disease with heart failure (principal); I50.42 Chronic combined systolic (congestive) and diastolic (congestive) heart failure; I25.10 Atherosclerotic heart disease of native coronary artery without angina pectoris; E03.9 Hypothyroidism, unspecified; E78.2 Mixed hyperlipidemia; I48.19 Other persistent atrial fibrillation; Z79.01 Long term (current) use of anticoagulants; Z91.040 Latex allergy status; Z88.8 Allergy status to other drugs, medicaments and biological substances; Z91.048 Other nonmedicinal substance allergy status; Z88.7 Allergy status to serum and vaccine; Z79.899 Other long term (current) drug therapy; Z79.890 Hormone replacement therapy; Z86.73 Personal history of transient ischemic attack (TIA), and cerebral infarction without residual deficits; Z98.890 Other specified postprocedural states; Z20.822 Contact with and (suspected) exposure to COVID-19
CPT/HCPCS: 36415; 70450; 71045; 80048; 80053; 80305; 80307; 81003; 82140; 83605; 83735; 83880; 84484; 85025; 85027; 85610; 85730; 86140; 93005; A9270; J1940; U0002

== ENCOUNTER 2022-09-30 19:29 | Emergency (ER) | payer MEDICARE, BC ==
[2022-09-30] MEDS ORDERED: Lactulose Soln 10 GM/15 ML 30 ML UD Cup PO ONE ×2 (19:30→22:00)
[2022-09-30 21:13] VITALS: BP 152/72; PULSE 85
[2022-09-30] MEDS ORDERED: Lactulose Soln 10 GM/15 ML 30 ML UD Cup ONE (23:22)
== END 2022-09-30 23:35 | disposition home or self-care (01) ==
LOC: DL.ED 19:29
DX: K59.00 Constipation, unspecified (principal); I48.91 Unspecified atrial fibrillation; I25.709 Atherosclerosis of coronary artery bypass graft(s), unspecified, with unspecified angina pectoris; E78.00 Pure hypercholesterolemia, unspecified; I10 Essential (primary) hypertension; M19.90 Unspecified osteoarthritis, unspecified site; E03.9 Hypothyroidism, unspecified; Z79.01 Long term (current) use of anticoagulants; Z91.018 Allergy to other foods; Z88.8 Allergy status to other drugs, medicaments and biological substances; Z88.6 Allergy status to analgesic agent; Z91.040 Latex allergy status; Z91.048 Other nonmedicinal substance allergy status; Z88.7 Allergy status to serum and vaccine; Z79.02 Long term (current) use of antithrombotics/antiplatelets; Z79.899 Other long term (current) drug therapy
CPT/HCPCS: 74018; 99283; A9270

== ENCOUNTER 2023-05-03 17:32 | Emergency (ER) | payer MEDICARE, BC ==
[2023-05-03] MEDS ORDERED: Sodium Chloride 0.9% 10 ML Syringe FLUSH PRN (17:51)
[2023-05-03 18:03] LABS: BASOPHILS PERCENT AUTO 0.1 % (0.0-1.0); EOSINOPHILS PERCENT AUTO 1.6 % (1.0-3.0); HEMATOCRIT 43.3 % (37.0-47.0); HEMOGLOBIN 14.7 g/dL (12.0-16.0); LYMPHOCYTES PERCENT AUTO 23.3 % (20.5-50.1); MEAN CORPUSCULAR HEMOGLOBIN 30.9 pg (27.0-34.0); MEAN CORPUSCULAR HGB CONC 33.9 g/dL (33.0-35.0); MEAN CORPUSCULAR VOLUME 91.2 fL (80-100); MONOCYTES PERCENT AUTO 10.3 % (2-8); NEUTROPHILS PERCENT AUTO 64.7 % (42.2-75.2); PLATELET COUNT,PLT 251 10^3/uL (150-450); RED BLOOD CELL COUNT 4.75 10^6/uL (4.2-5.4); WHITE BLOOD CELL COUNT,WBC 9.1 10^3/uL (5.0-10.0)
[2023-05-03 18:26] LABS: B-TYPE NATRIURETIC PEPTIDE,BNP 271 pg/ml (0-100); PROTHROMBIN TIME 10.2 SEC (9.0-12.0); PTT,PARTIAL THROMBOPLSTIN TIME 33.7 SEC (22.0-34.0)
[2023-05-03 18:29] LABS: A/G RATIO 1.4; ALANINE AMINOTRANSFERASE,ALT 30 U/L (14-59); ALBUMIN 4.3 g/dL (3.4-5.0); ALKALINE PHOSPHATASE 107 U/L (46-116); ANION GAP 13.8 mEq/L (7-13); ASPARTATE AMNIOTRANSFERASE,AST 24 U/L (15-37); BILIRUBIN TOTAL 0.4 mg/dL (0.2-1.0); BLOOD UREA NITROGEN,BUN 30 mg/dL (7-18); BUN/CREATININE RATIO 31.6 (No establ ref range); CALCIUM 9.5 mg/dL (8.5-10.1); CARBON DIOXIDE,CO2 27 mmol/L (21-32); CHLORIDE,CL 95 mmol/L (98-107); CREATININE 0.95 mg/dL (0.55-1.02); ESTIMATED GFR 62 mL/min (>=60); GLUCOSE RANDOM 99 mg/dL (70-99); POTASSIUM,K 4.8 mmol/L (3.5-5.1); PROTEIN TOTAL,TP 7.4 g/dL (6.4-8.2); SODIUM,NA 131 mmol/L (136-145)
[2023-05-03] MEDS ORDERED: hydrALAZINE 25 MG Tab PO ONE (20:45)
[2023-05-03] MEDS ORDERED: rOPINIRole 0.25 MG Tab PO ONE (20:46)
[2023-05-03 21:05] LABS: APPEARANCE,URINE CLEAR (CLEAR); BILIRUBIN,URINE NEGATIVE (NEGATIVE); COLOR,URINE YELLOW (YELLOW); GLUCOSE,URINE 100 (NEGATIVE); KETONES,URINE NEGATIVE (NEGATIVE); LEUKOCYTE ESTERASE,URINE TRACE (NEGATIVE); NITRITE,URINE NEGATIVE (NEGATIVE); OCCULT BLOOD,URINE TRACE-INTACT (NEGATIVE); PROTEIN,URINE NEGATIVE (NEGATIVE); UROBILINOGEN,URINE 0.2 mg/dL (0.2-1.0)
[2023-05-03 21:23] LABS: AMORPHOUS SEDIMENT,URINE FEW /HPF (NOT SEEN); BACTERIA,URINE MANY /HPF (0-FEW/HPF); EPITHELIAL CELLS,URINE MODERATE /HPF (NOT SEEN); MUCUS,URINE FEW /LPF (NOT SEEN); RBC,URINE 0-5 /HPF (0-5)
[2023-05-03] MEDS ORDERED: Nitrofurantoin Monohydrate/Macrocrystalline 100 MG Cap PO ONE (22:33)
[2023-05-03 22:40] VITALS: BP 158/110; PULSE 71
== END 2023-05-03 22:41 | disposition home or self-care (01) ==
LOC: DL.ED 17:32
DX: I48.91 Unspecified atrial fibrillation (principal); R07.2 Precordial pain; N30.00 Acute cystitis without hematuria; R55 Syncope and collapse; I25.709 Atherosclerosis of coronary artery bypass graft(s), unspecified, with unspecified angina pectoris; E78.00 Pure hypercholesterolemia, unspecified; I10 Essential (primary) hypertension; M19.90 Unspecified osteoarthritis, unspecified site; E03.9 Hypothyroidism, unspecified; Z79.01 Long term (current) use of anticoagulants; Z91.018 Allergy to other foods; Z88.8 Allergy status to other drugs, medicaments and biological substances; Z88.6 Allergy status to analgesic agent; Z91.040 Latex allergy status; Z91.048 Other nonmedicinal substance allergy status; Z88.7 Allergy status to serum and vaccine; Z79.899 Other long term (current) drug therapy
CPT/HCPCS: 36415; 70450; 71045; 80053; 81001; 83880; 84484; 85025; 85610; 85730; 87086; 87088; 87186; 93005; 93010; 99284; 99285; A9270-GY; J3490

== ENCOUNTER 2024-08-10 17:35 | Emergency (ER) | payer MEDICARE, BC ==
[2024-08-10 18:07] LABS: APPEARANCE,URINE CLEAR (CLEAR); BILIRUBIN,URINE NEGATIVE (NEGATIVE); COLOR,URINE YELLOW (YELLOW); GLUCOSE,URINE NEGATIVE (NEGATIVE); KETONES,URINE NEGATIVE (NEGATIVE); LEUKOCYTE ESTERASE,URINE TRACE (NEGATIVE); NITRITE,URINE NEGATIVE (NEGATIVE); OCCULT BLOOD,URINE NEGATIVE (NEGATIVE); PROTEIN,URINE NEGATIVE (NEGATIVE); UROBILINOGEN,URINE 0.2 mg/dL (0.2-1.0)
[2024-08-10 18:15] VITALS: BP 175/90; PULSE 86
[2024-08-10 18:16] LABS: BACTERIA,URINE MODERATE /HPF (0-FEW/HPF); EPITHELIAL CELLS,URINE FEW /HPF (NOT SEEN); RBC,URINE 0-5 /HPF (0-5)
[2024-08-10] MEDS: Dexamethasone 4 MG/ML SDV IM ONE (18:32)
== END 2024-08-10 18:38 | disposition home or self-care (01) ==
LOC: DL.ED 17:35
DX: N30.00 Acute cystitis without hematuria (principal); M25.561 Pain in right knee; M25.562 Pain in left knee; G89.29 Other chronic pain; I48.91 Unspecified atrial fibrillation; I25.10 Atherosclerotic heart disease of native coronary artery without angina pectoris; E78.00 Pure hypercholesterolemia, unspecified; I10 Essential (primary) hypertension; Z95.5 Presence of coronary angioplasty implant and graft; E03.9 Hypothyroidism, unspecified; Z90.710 Acquired absence of both cervix and uterus; Z79.01 Long term (current) use of anticoagulants; Z91.018 Allergy to other foods; Z88.8 Allergy status to other drugs, medicaments and biological substances; Z88.6 Allergy status to analgesic agent; Z91.040 Latex allergy status; Z91.048 Other nonmedicinal substance allergy status; Z88.7 Allergy status to serum and vaccine; Z79.899 Other long term (current) drug therapy
CPT/HCPCS: 81001; 87086; 96372; 99283; J1100; 87088; 87186; 99284

== ENCOUNTER 2024-10-12 18:03 | Emergency (ER) | payer MEDICARE, BC ==
[2024-10-12 19:16] LABS: BASOPHILS PERCENT AUTO 0.1 % (0.0-1.0); EOSINOPHILS PERCENT AUTO 2.8 % (1.0-3.0); HEMATOCRIT 38.2 % (37.0-47.0); HEMOGLOBIN 12.6 g/dL (12.0-16.0); MEAN CORPUSCULAR HEMOGLOBIN 31.1 pg (27.0-34.0); MEAN CORPUSCULAR VOLUME 94.3 fL (80-100); MONOCYTES PERCENT AUTO 13.8 % (2-8); NEUTROPHILS PERCENT AUTO 66.3 % (42.2-75.2); PLATELET COUNT,PLT 325 10^3/uL (150-450); RED BLOOD CELL COUNT 4.05 10^6/uL (4.2-5.4); WHITE BLOOD CELL COUNT,WBC 8.3 10^3/uL (5.0-10.0)
[2024-10-12] MEDS: Acetaminophen/HYDROcodone 325-5 MG Tab PO ONE (19:17)
[2024-10-12 19:35] LABS: INR 3.8 (0.9-1.2); PROTHROMBIN TIME 36.5 SEC (9.0-12.0); PTT,PARTIAL THROMBOPLSTIN TIME 42.3 SEC (22.0-34.0)
[2024-10-12 19:37] LABS: A/G RATIO 1.2; ALANINE AMINOTRANSFERASE,ALT 28 U/L (14-59); ALBUMIN 3.8 g/dL (3.4-5.0); ALKALINE PHOSPHATASE 141 U/L (46-116); ANION GAP 9.4 mEq/L (7-13); ASPARTATE AMNIOTRANSFERASE,AST 23 U/L (15-37); BILIRUBIN TOTAL 0.3 mg/dL (0.2-1.0); BLOOD UREA NITROGEN,BUN 13 mg/dL (7-18); CALCIUM 9.7 mg/dL (8.5-10.1); CARBON DIOXIDE,CO2 32 mmol/L (21-32); CHLORIDE,CL 94 mmol/L (98-107); CREATININE 0.93 mg/dL (0.55-1.02); EST CRCL DRUG DOSING (CG) 39.43 mL/min; GLUCOSE RANDOM 111 mg/dL (70-99); POTASSIUM,K 4.4 mmol/L (3.5-5.1); PROTEIN TOTAL,TP 7.1 g/dL (6.4-8.2); SODIUM,NA 131 mmol/L (136-145)
[2024-10-12 19:39] LABS: C-REACTIVE PROTEIN < 0.50 ng/dL (<=0.50); ESTIMATED GFR 63 mL/min (>=60)
[2024-10-12 19:44] LABS: D-DIMER QUANTITATIVE < 100 ng/mL (0-400); LACTIC ACID 1.1 mmol/L (0.4-2.0)
[2024-10-12 20:06] VITALS: BP 145/90; PULSE 60
== END 2024-10-12 20:00 | disposition home or self-care (01) ==
LOC: DL.ED 18:03
DX: S80.12XA Contusion of left lower leg, initial encounter (principal); I25.10 Atherosclerotic heart disease of native coronary artery without angina pectoris; I48.91 Unspecified atrial fibrillation; I10 Essential (primary) hypertension; E78.00 Pure hypercholesterolemia, unspecified; J45.909 Unspecified asthma, uncomplicated; E03.9 Hypothyroidism, unspecified; Z95.5 Presence of coronary angioplasty implant and graft; Z90.49 Acquired absence of other specified parts of digestive tract; Z90.710 Acquired absence of both cervix and uterus; Z86.73 Personal history of transient ischemic attack (TIA), and cerebral infarction without residual deficits; Z91.040 Latex allergy status; Z88.6 Allergy status to analgesic agent; Z88.8 Allergy status to other drugs, medicaments and biological substances; Z91.048 Other nonmedicinal substance allergy status; Z79.01 Long term (current) use of anticoagulants; Z79.890 Hormone replacement therapy; Z79.899 Other long term (current) drug therapy; W19.XXXA Unspecified fall, initial encounter
CPT/HCPCS: 36415; 80053; 83605; 85025; 85379; 85610; 85730; 86140; 99283; A9270

== ENCOUNTER 2024-11-01 20:14 | Emergency (ER) | payer MEDICARE, BC ==
[2024-11-01 21:40] VITALS: BP 122/67; PULSE 75
[2024-11-01 22:06] LABS: APPEARANCE,URINE CLEAR (CLEAR); BILIRUBIN,URINE NEGATIVE (NEGATIVE); GLUCOSE,URINE NEGATIVE (NEGATIVE); KETONES,URINE NEGATIVE (NEGATIVE); LEUKOCYTE ESTERASE,URINE TRACE (NEGATIVE); NITRITE,URINE NEGATIVE (NEGATIVE); OCCULT BLOOD,URINE NEGATIVE (NEGATIVE); PROTEIN,URINE NEGATIVE (NEGATIVE); UROBILINOGEN,URINE 0.2 mg/dL (0.2-1.0)
[2024-11-01 22:07] LABS: COLOR,URINE LIGHT YELLOW (YELLOW)
[2024-11-01 22:27] LABS: BASOPHILS PERCENT AUTO 0.3 % (0.0-1.0); HEMATOCRIT 37.8 % (37.0-47.0); HEMOGLOBIN 12.5 g/dL (12.0-16.0); LYMPHOCYTES PERCENT AUTO 19.5 % (20.5-50.1); MEAN CORPUSCULAR HEMOGLOBIN 30.1 pg (27.0-34.0); MEAN CORPUSCULAR HGB CONC 33.1 g/dL (33.0-35.0); MEAN CORPUSCULAR VOLUME 91.1 fL (80-100); MONOCYTES PERCENT AUTO 13.2 % (2-8); PLATELET COUNT,PLT 366 10^3/uL (150-450); RED BLOOD CELL COUNT 4.15 10^6/uL (4.2-5.4); WHITE BLOOD CELL COUNT,WBC 7.7 10^3/uL (5.0-10.0)
[2024-11-01 22:30] LABS: BACTERIA,URINE RARE /HPF (0-FEW/HPF); EPITHELIAL CELLS,URINE RARE /HPF (NOT SEEN); RBC,URINE 0-5 /HPF (0-5)
[2024-11-01 22:43] LABS: INR 3.8 (0.9-1.2); PROTHROMBIN TIME 36.1 SEC (9.0-12.0)
[2024-11-01 22:47] LABS: ALBUMIN 3.5 g/dL (3.4-5.0); BILIRUBIN TOTAL 0.3 mg/dL (0.2-1.0); BUN/CREATININE RATIO 18.6 (No establ ref range); CALCIUM 9.4 mg/dL (8.5-10.1); CREATININE 0.97 mg/dL (0.55-1.02); EST CRCL DRUG DOSING (CG) 37.8 mL/min; PROTEIN TOTAL,TP 6.9 g/dL (6.4-8.2)
[2024-11-01] MEDS: Furosemide 40 MG Tab PO ONE (23:48)
== END 2024-11-02 00:13 | disposition home or self-care (01) ==
LOC: DL.ED 20:14
DX: I11.0 Hypertensive heart disease with heart failure (principal); I50.43 Acute on chronic combined systolic (congestive) and diastolic (congestive) heart failure; E87.70 Fluid overload, unspecified; E87.1 Hypo-osmolality and hyponatremia; I48.91 Unspecified atrial fibrillation; I25.10 Atherosclerotic heart disease of native coronary artery without angina pectoris; E78.00 Pure hypercholesterolemia, unspecified; J45.909 Unspecified asthma, uncomplicated; E03.9 Hypothyroidism, unspecified; Z95.5 Presence of coronary angioplasty implant and graft; Z90.49 Acquired absence of other specified parts of digestive tract; Z90.710 Acquired absence of both cervix and uterus; Z88.6 Allergy status to analgesic agent; Z88.8 Allergy status to other drugs, medicaments and biological substances; Z88.7 Allergy status to serum and vaccine; Z91.040 Latex allergy status; Z91.048 Other nonmedicinal substance allergy status; Z79.01 Long term (current) use of anticoagulants; Z79.890 Hormone replacement therapy; Z79.899 Other long term (current) drug therapy
CPT/HCPCS: 36415; 80053; 81001; 83880; 85025; 85379; 85610; 87086; 99283; 99284; A9270

== ENCOUNTER 2024-11-16 14:38 | Emergency (ER) | payer MEDICARE, BC ==
[2024-11-16 15:16] LABS: BASOPHILS PERCENT AUTO 0.2 % (0.0-1.0); EOSINOPHILS PERCENT AUTO 2.9 % (1.0-3.0); HEMATOCRIT 37.8 % (37.0-47.0); HEMOGLOBIN 12.4 g/dL (12.0-16.0); LYMPHOCYTES PERCENT AUTO 22.3 % (20.5-50.1); MEAN CORPUSCULAR HGB CONC 32.8 g/dL (33.0-35.0); MEAN CORPUSCULAR VOLUME 91.5 fL (80-100); MONOCYTES PERCENT AUTO 14.6 % (2-8); PLATELET COUNT,PLT 330 10^3/uL (150-450); RED BLOOD CELL COUNT 4.13 10^6/uL (4.2-5.4)
[2024-11-16 15:42] LABS: INR 1.9 (0.9-1.2); PROTHROMBIN TIME 19.2 SEC (9.0-12.0)
[2024-11-16 15:46] LABS: A/G RATIO 1.3; ALBUMIN 3.6 g/dL (3.4-5.0); ANION GAP 12.6 mEq/L (7-13); BILIRUBIN TOTAL 0.6 mg/dL (0.2-1.0); BUN/CREATININE RATIO 20.4 (No establ ref range); CREATININE 0.98 mg/dL (0.55-1.02); EST CRCL DRUG DOSING (CG) 37.42 mL/min; MAGNESIUM 2.2 mg/dL (1.8-2.4); POTASSIUM,K 4.6 mmol/L (3.5-5.1); PROTEIN TOTAL,TP 6.4 g/dL (6.4-8.2)
[2024-11-16 16:26] VITALS: BP 150/80; PULSE 80
== END 2024-11-16 16:24 | disposition home or self-care (01) ==
LOC: DL.ED 14:38
DX: I11.0 Hypertensive heart disease with heart failure (principal); I50.9 Heart failure, unspecified; E87.1 Hypo-osmolality and hyponatremia; I25.10 Atherosclerotic heart disease of native coronary artery without angina pectoris; I48.91 Unspecified atrial fibrillation; E78.00 Pure hypercholesterolemia, unspecified; J45.909 Unspecified asthma, uncomplicated; E03.9 Hypothyroidism, unspecified; Z86.73 Personal history of transient ischemic attack (TIA), and cerebral infarction without residual deficits; Z90.49 Acquired absence of other specified parts of digestive tract; Z90.710 Acquired absence of both cervix and uterus; Z95.5 Presence of coronary angioplasty implant and graft; Z88.6 Allergy status to analgesic agent; Z88.8 Allergy status to other drugs, medicaments and biological substances; Z88.7 Allergy status to serum and vaccine; Z91.040 Latex allergy status; Z91.048 Other nonmedicinal substance allergy status; Z79.01 Long term (current) use of anticoagulants; Z79.890 Hormone replacement therapy; Z79.899 Other long term (current) drug therapy
CPT/HCPCS: 36415; 71045; 80053; 83735; 84484; 85025; 85610; 99284

== ENCOUNTER 2025-06-03 22:05 | Emergency (ER) | payer MEDICARE, BC ==
[2025-06-03] MEDS ORDERED: Sodium Chloride 0.9% 10 ML Syringe FLUSH PRN (22:18)
[2025-06-03 22:32] LABS: BASOPHILS PERCENT AUTO 0.1 % (0.0-1.0); EOSINOPHILS PERCENT AUTO 2.7 % (1.0-3.0); LYMPHOCYTES PERCENT AUTO 27.8 % (20.5-50.1); MONOCYTES PERCENT AUTO 13.6 % (2-8); NEUTROPHILS PERCENT AUTO 55.8 % (42.2-75.2); PLATELET COUNT,PLT 266 10^3/uL (150-450); RED BLOOD CELL COUNT 4.13 10^6/uL (4.2-5.4); WHITE BLOOD CELL COUNT,WBC 7.4 10^3/uL (5.0-10.0)
[2025-06-03 22:33] LABS: APPEARANCE,URINE SLIGHTLY CLOUDY (CLEAR); GLUCOSE,URINE NEGATIVE (NEGATIVE); OCCULT BLOOD,URINE TRACE-INTACT (NEGATIVE)
[2025-06-03] MEDS: Nitroglycerin 0.4 MG Tab.SL SL ONE (22:36)
[2025-06-03 22:41] LABS: EPITHELIAL CELLS,URINE FEW /HPF (NOT SEEN)
[2025-06-03 22:51] LABS: INR 2.5 (0.9-1.2); PTT,PARTIAL THROMBOPLSTIN TIME 36.7 SEC (22.0-34.0)
[2025-06-03 22:57] LABS: LACTIC ACID 1.1 mmol/L (0.4-2.0)
[2025-06-03 22:58] LABS: A/G RATIO 1.1; ALANINE AMINOTRANSFERASE,ALT 26.0 U/L (14-59); ASPARTATE AMNIOTRANSFERASE,AST 19.0 U/L (15-37); BILIRUBIN TOTAL 0.4 mg/dL (0.2-1.0); BLOOD UREA NITROGEN,BUN 20.0 mg/dL (7-18); CARBON DIOXIDE,CO2 30.0 mmol/L (21-32); CHLORIDE,CL 93.0 mmol/L (98-107); CREATININE 1.01 mg/dL (0.55-1.02); EST CRCL DRUG DOSING (CG) 34.08 mL/min; ESTIMATED GFR 57.0 mL/min (>=60); GLUCOSE RANDOM 109.0 mg/dL (70-99); POTASSIUM,K 4.6 mmol/L (3.5-5.1); PROTEIN TOTAL,TP 7.0 g/dL (6.4-8.2); SODIUM,NA 128.0 mmol/L (136-145)
[2025-06-03 23:04] LABS: B-TYPE NATRIURETIC PEPTIDE,BNP 208.0 pg/ml (0-100)
[2025-06-04] MEDS ORDERED: Iopamidol 612 MG/ML 100 ML Bottle IVPUSH ONE (00:03)
[2025-06-04] MEDS: Ondansetron 4 MG/2 ML SDV IVPUSH ONE (01:54)
[2025-06-04 06:36] VITALS: BP 152/54; PULSE 74
== END 2025-06-04 08:10 | disposition home or self-care (01) ==
LOC: DL.ED 22:05
DX: I20.0 Unstable angina (principal); N39.0 Urinary tract infection, site not specified; R79.89 Other specified abnormal findings of blood chemistry; I50.9 Heart failure, unspecified; D68.318 Other hemorrhagic disorder due to intrinsic circulating anticoagulants, antibodies, or inhibitors; E78.00 Pure hypercholesterolemia, unspecified; I48.91 Unspecified atrial fibrillation; I10 Essential (primary) hypertension; I25.10 Atherosclerotic heart disease of native coronary artery without angina pectoris; E03.9 Hypothyroidism, unspecified; Z91.040 Latex allergy status; Z88.8 Allergy status to other drugs, medicaments and biological substances; Z79.899 Other long term (current) drug therapy; Z79.82 Long term (current) use of aspirin; Z79.890 Hormone replacement therapy; Z90.49 Acquired absence of other specified parts of digestive tract; Z90.710 Acquired absence of both cervix and uterus
CPT/HCPCS: 36415; 71045; 71275; 80053; 81001; 83605; 83735; 83880; 84484; 85025; 85379; 85610; 85730; 87086; 93005; 93010; 96374; 96375; 99285; A9270; J0696; J2405

== ENCOUNTER 2025-07-11 09:29 | Emergency (ER) | payer MEDICARE, BC ==
[2025-07-11] MEDS ORDERED: Sodium Chloride 0.9% 10 ML Syringe FLUSH PRN (09:40)
[2025-07-11 09:49] LABS: BASOPHILS PERCENT AUTO 0.2 % (0.0-1.0); EOSINOPHILS PERCENT AUTO 2.4 % (1.0-3.0); LYMPHOCYTES PERCENT AUTO 29.7 % (20.5-50.1); MONOCYTES PERCENT AUTO 13.1 % (2-8); NEUTROPHILS PERCENT AUTO 54.6 % (42.2-75.2); PLATELET COUNT,PLT 274 10^3/uL (150-450); RED BLOOD CELL COUNT 4.52 10^6/uL (4.2-5.4); WHITE BLOOD CELL COUNT,WBC 6.2 10^3/uL (5.0-10.0)
[2025-07-11 10:08] LABS: B-TYPE NATRIURETIC PEPTIDE,BNP 177.0 pg/ml (0-100); INR 2.6 (0.9-1.2)
[2025-07-11 10:25] LABS: APPEARANCE,URINE CLEAR (CLEAR); GLUCOSE,URINE NEGATIVE (NEGATIVE); OCCULT BLOOD,URINE TRACE-INTACT (NEGATIVE)
[2025-07-11 10:27] LABS: A/G RATIO 1.3; ALANINE AMINOTRANSFERASE,ALT 22.0 U/L (14-59); ASPARTATE AMNIOTRANSFERASE,AST 19.0 U/L (15-37); BILIRUBIN TOTAL 0.4 mg/dL (0.2-1.0); BLOOD UREA NITROGEN,BUN 19.0 mg/dL (7-18); CARBON DIOXIDE,CO2 31.0 mmol/L (21-32); CREATININE 1.11 mg/dL (0.55-1.02); EST CRCL DRUG DOSING (CG) 33.99 mL/min; GLUCOSE RANDOM 113.0 mg/dL (70-99); PROTEIN TOTAL,TP 7.4 g/dL (6.4-8.2)
[2025-07-11 10:31] LABS: CHLORIDE,CL 95.0 mmol/L (98-107); ESTIMATED GFR 51.0 mL/min (>=60); POTASSIUM,K 4.7 mmol/L (3.5-5.1); SODIUM,NA 129.0 mmol/L (136-145)
[2025-07-11 10:40] LABS: EPITHELIAL CELLS,URINE FEW /HPF (NOT SEEN)
[2025-07-11] MEDS: Nitrofurantoin Monohydrate/Macrocrystalline 100 MG Cap PO ONE (11:23)
[2025-07-11] MEDS: Take Home: Nitrofurantoin Monohydrate/Macrocrystalline 100 MG, 6 Cap Pack PO ONE (12:24)
[2025-07-11 12:37] VITALS: BP 152/80; PULSE 69
== END 2025-07-11 12:38 | disposition home or self-care (01) ==
LOC: DL.ED 09:29
DX: R07.89 Other chest pain (principal); N39.0 Urinary tract infection, site not specified; E78.00 Pure hypercholesterolemia, unspecified; J45.909 Unspecified asthma, uncomplicated; E03.9 Hypothyroidism, unspecified; I11.0 Hypertensive heart disease with heart failure; I50.20 Unspecified systolic (congestive) heart failure; Z88.8 Allergy status to other drugs, medicaments and biological substances; Z91.040 Latex allergy status; Z79.890 Hormone replacement therapy; Z79.899 Other long term (current) drug therapy; Z90.710 Acquired absence of both cervix and uterus
CPT/HCPCS: 36415; 80053; 81001; 83690; 83735; 83880; 84484; 85025; 85610; 93005; 93010; 99284; 99285; A9270

== ENCOUNTER 2025-10-04 08:55 | Observation (INO) | payer MEDICARE, BC ==
[2025-10-04 10:03] LABS: INR 5.8 (0.9-1.2)
[2025-10-04] MEDS ORDERED: Nitroglycerin 0.4 MG Tab.SL SL PRN (13:18)
[2025-10-04] MEDS ORDERED: Non-Formulary Medication 1 Each (Estradiol [Estrace 0.01% Vaginal Crm] 42.5 GM Tube) VAG SCH (13:30)
[2025-10-04] MEDS ORDERED: Lactulose Soln 10 GM/15 ML 30 ML UD Cup PO PRN (13:36)
[2025-10-04] MEDS: Sennosides/Docusate Sodium 50-8.6 MG Tab PO SCH (20:41)
[2025-10-04] MEDS: Timolol Maleate 0.25% Ophth Soln 5 ML Bottle EYEBOTH SCH (20:52)
[2025-10-05 06:20] LABS: BASOPHILS PERCENT AUTO 0.3 % (0.0-1.0); EOSINOPHILS PERCENT AUTO 4.9 % (1.0-3.0); LYMPHOCYTES PERCENT AUTO 21.6 % (20.5-50.1); MONOCYTES PERCENT AUTO 13.7 % (2-8); NEUTROPHILS PERCENT AUTO 59.5 % (42.2-75.2); PLATELET COUNT,PLT 248 10^3/uL (150-450); RED BLOOD CELL COUNT 3.96 10^6/uL (4.2-5.4); WHITE BLOOD CELL COUNT,WBC 5.9 10^3/uL (5.0-10.0)
[2025-10-05 07:08] VITALS: BP 139/55; PULSE 43
[2025-10-05] MEDS: Vitamin B Complex Cap PO SCH (08:04)
== END 2025-10-05 09:25 | disposition home or self-care (01) ==
LOC: DL.ED 08:55 → DL.MS 10:13 → DL.ED 11:03
PROVIDERS: ADMIT Internal Medicine; ATTEND Internal Medicine
DX: R04.0 Epistaxis (principal); I48.91 Unspecified atrial fibrillation; I25.118 Atherosclerotic heart disease of native coronary artery with other forms of angina pectoris; E78.00 Pure hypercholesterolemia, unspecified; J45.909 Unspecified asthma, uncomplicated; K90.0 Celiac disease; R32 Unspecified urinary incontinence; I10 Essential (primary) hypertension; E03.9 Hypothyroidism, unspecified; Z79.01 Long term (current) use of anticoagulants; Z79.899 Other long term (current) drug therapy; Z79.82 Long term (current) use of aspirin; Z79.890 Hormone replacement therapy; Z88.8 Allergy status to other drugs, medicaments and biological substances; Z91.040 Latex allergy status; Z91.09 Other allergy status, other than to drugs and biological substances
CPT/HCPCS: 36415; 85025; 85610; 96365; 99222; 99239; 99284; A9270; J3430; G0378